=== PATIENT | male | born 1980 | race Caucasian/White ===

== ENCOUNTER 2019-04-02 10:22 | Outpatient (REF) | payer MEDICARE, MEDICAID, SELFPAY ==
[2019-04-02 13:18] LABS: HCT 47.6 % (40.0-50.0); HGB 16.1 g/dL (13.5-17.5); Mean Corp. HGB Concentration 33.8 g/dL (32.0-36.0); Mean Corpuscular Hemoglobin 30.9 pg (27.0-33.0); Mean Corpuscular Volume 91.4 fL (80-95); Mean Platelet Volume 11.2 fL (8.0-11.0); Platelet Count 223 x1000/uL (130-400); RBC 5.21 m/cumm (4.50-6.00); RBC Distribution Width 12.6 % (11.8-14.1); White Blood Cell Count 5.76 k/cumm (4.4-10.8)
[2019-04-02 13:35] LABS: Lithium < 0.20 mmol/L (0.60-1.20)
[2019-04-02 13:39] LABS: ALT 96 U/L (12-78); AST 34 U/L (15-37); Alkaline Phosphatase 89 U/L (46-116); BUN 11 mg/dL (7-18); Bilirubin, Total 0.7 mg/dL (0.2-1.0); CREATININE 0.78 mg/dL (0.70-1.30); Calcium 9.2 mg/dL (8.5-10.1); Chloride 103 mmol/L (98-107); Glucose 85 mg/dL (70-100); Potassium 4.3 mmol/L (3.5-5.1); Sodium 137 mmol/L (136-145); Total Protein 7.2 g/dL (6.4-8.2)
== END 2019-04-02 10:42 ==
LOC: NCHCN 10:22
PROVIDERS: PCP Family Medicine; Visit Provider Family Medicine
DX: R74.0 Nonspecific elevation of levels of transaminase and lactic acid dehydrogenase [LDH] (principal); Z51.81 Encounter for therapeutic drug level monitoring; Z79.899 Other long term (current) drug therapy
CPT/HCPCS: 80053; 85027; 80178

== ENCOUNTER 2020-04-06 19:51 | Outpatient (REF) | payer MEDICARE, MEDICAID, SELFPAY ==
[2020-04-06 18:53] LABS: HCT 46.2 % (40.0-50.0); HGB 15.8 g/dL (13.5-17.5); Mean Corp. HGB Concentration 34.2 g/dL (32.0-36.0); Mean Corpuscular Hemoglobin 31.1 pg (27.0-33.0); Mean Corpuscular Volume 90.9 fL (80-95); Mean Platelet Volume 11.7 fL (8.0-11.0); Platelet Count 237 x1000/uL (130-400); RBC 5.08 m/cumm (4.50-6.00); RBC Distribution Width 12.3 % (11.8-14.1); White Blood Cell Count 6.67 k/cumm (4.4-10.8)
[2020-04-06 19:05] LABS: ALT 75 U/L (16-63); AST 35 U/L (15-37); Albumin 4.1 g/dL (3.4-5.0); Alkaline Phosphatase 88 U/L (46-116); Anion Gap 8.1 mmol/L (3-11); BUN 13 mg/dL (7-18); Bilirubin, Total 0.5 mg/dL (0.2-1.0); CO2 26.9 mmol/L (21.0-32.0); CREATININE 0.93 mg/dL (0.70-1.30); Calcium 8.8 mg/dL (8.5-10.1); Chloride 102 mmol/L (98-107); Glucose 88 mg/dL (74-106); Potassium 4.1 mmol/L (3.5-5.1); Sodium 137 mmol/L (136-145); Total Protein 7.2 g/dL (6.4-8.2)
== END 2020-04-06 20:11 ==
LOC: NCHCN 19:51
PROVIDERS: PCP Family Medicine; Visit Provider Family Medicine
DX: K76.0 Fatty (change of) liver, not elsewhere classified (principal)
CPT/HCPCS: 80053; 85027

== ENCOUNTER 2021-04-16 19:32 | Outpatient (REF) | payer MEDICARE, MEDICAID, SELFPAY ==
[2021-04-16 19:57] LABS: HCT 49.6 % (40.0-50.0); HGB 16.6 g/dL (13.5-17.5); MCH 30.6 pg (27.0-33.0); MCHC 33.5 % (32.0-36.0); MCV 91.5 fL (80-95); MPV 11.5 fL (8.0-11.0); Platelet Count 214 10^3/uL (130-400); RBC 5.42 10^6/uL (4.36-5.78); RDW 11.7 % (11.8-14.1); RDW-SD 39.4 fL; WBC 6.55 10^3/uL (4.4-10.8)
[2021-04-16 20:27] LABS: Hemoglobin A1C 5.7 % (<5.7)
== END 2021-04-16 19:33 | disposition home or self-care (01) ==
LOC: NCHCN 19:32
PROVIDERS: PCP Family Medicine; Visit Provider Family Medicine
DX: R03.0 Elevated blood-pressure reading, without diagnosis of hypertension (principal); F20.0 Paranoid schizophrenia; K76.0 Fatty (change of) liver, not elsewhere classified; Z79.899 Other long term (current) drug therapy
CPT/HCPCS: 80053; 82306; 85027; 83036; 84443

== ENCOUNTER 2021-09-12 20:14 | Outpatient (REF) | payer MEDICARE, MEDICAID, SELFPAY ==
[2021-09-12 21:29] LABS: HCT 45.5 % (40.0-50.0); HGB 15.1 g/dL (13.5-17.5); MCH 30.7 pg (27.0-33.0); MCHC 33.2 % (32.0-36.0); MCV 92.5 fL (80-95); MPV 12.2 fL (8.0-11.0); Platelet Count 228 10^3/uL (130-400); RBC 4.92 10^6/uL (4.36-5.78); RDW 11.7 % (11.8-14.1); RDW-SD 40.2 fL
[2021-09-13 09:26] LABS: Albumin 3.9 g/dL (3.4-5.0); BUN 16 mg/dL (7-18); Bilirubin, Total 0.5 mg/dL (0.2-1.0); Glucose 115 mg/dL (74-106); Total Protein 6.9 g/dL (6.4-8.2)
[2021-09-13 09:27] LABS: ALT 89 U/L (16-63); AST 35 U/L (15-37); Alkaline Phosphatase 92 U/L (46-116); Anion Gap 12.4 mmol/L (3-11); CO2 24.6 mmol/L (21.0-32.0); Chloride 105 mmol/L (98-107); Potassium 4.2 mmol/L (3.5-5.1); Sodium 142 mmol/L (136-145); TSH (W/Ref FT4) 0.51 uIU/mL (0.36-3.74)
== END 2021-09-12 20:15 | disposition home or self-care (01) ==
LOC: NCHCN 20:14
PROVIDERS: PCP Family Medicine; Visit Provider Family Medicine
DX: I10 Essential (primary) hypertension (principal); K76.0 Fatty (change of) liver, not elsewhere classified
CPT/HCPCS: 80053; 85027; 84443

== ENCOUNTER 2023-02-11 14:11 | Outpatient (REF) | payer MEDICARE, MEDICAID, SELFPAY ==
[2023-02-11 15:30] LABS: HCT 48.8 % (40.0-50.0); HGB 16.2 g/dL (13.5-17.5); MCH 29.8 pg (27.0-33.0); MCHC 33.2 % (32.0-36.0); MCV 90 fL (80-95); MPV 9.7 fL (8.0-11.0); Platelet Count 262 10^3/uL (130-400); RBC 5.44 10^6/uL (4.36-5.78); RDW 12.4 % (11.8-14.1); RDW-SD 40.5 fL; WBC 7.68 10^3/uL (4.4-10.8)
[2023-02-11 17:10] LABS: ALT 77 U/L (16-63); AST 32 U/L (15-37); Alkaline Phosphatase 112 U/L (46-116); Anion Gap 9.4 mmol/L (3-11); BUN 15 mg/dL (7-18); Bilirubin, Total 0.5 mg/dL (0.2-1.0); CO2 27.6 mmol/L (21.0-32.0); CREATININE 0.8 mg/dL (0.70-1.30); Calcium 9.4 mg/dL (8.5-10.1); Chloride 103 mmol/L (98-107); Estimated GFR 114.02 (mL/min/1.73m2); Glucose 96 mg/dL (74-106); Sodium 140 mmol/L (136-145); Total Protein 7.5 g/dL (6.4-8.2)
[2023-02-11 17:19] LABS: NT-proBNP < 5 pg/mL (<300)
== END 2023-02-11 14:12 | disposition home or self-care (01) ==
LOC: NCHCN 14:11
PROVIDERS: PCP Family Medicine; Visit Provider Family Medicine
DX: R06.02 Shortness of breath (principal); K76.0 Fatty (change of) liver, not elsewhere classified; R60.0 Localized edema
CPT/HCPCS: 80053; 85027; 83880

== ENCOUNTER 2023-02-25 03:14 | Outpatient (CLI) | payer MEDICARE, MEDICAID, SELFPAY ==
[2023-02-25] MEDS: Albuterol HFA 18 GM 200 PUFF INH IH (11:24)
[2023-02-25] MEDS: Inhaler, Assist Device 1 EACH MC (11:25)
--- NOTE | 2023-02-25 13:28 | W.PFT ---
Date of service: 02/25/23 Time of Service: 10:06 Pulmonary Function Test Result Indications: Shortness of breath Interpretation Spirometry: There is no airflow limitation. There is no bronchodilator response. There may be flattening of the expiratory loop. Lung Volumes: Normal lung volumes. Diffusion Capacity: Increased diffusion. Airway Pressure: Normal airways resistance Impression Possible flattening of the expiratory loop on the flow volume curve. This may be consistent with a variable intrathoracic upper airway obstructive pattern, the differential for this can include airway trauma, airway infection, airway inflammation, mass, etc. Consider chest CT for further evaluation if clinically appropriate. Clinical Correlation therefore is recommended.
== END 2023-02-25 03:15 | disposition home or self-care (01) ==
LOC: RT 03:14
PROVIDERS: PCP Family Medicine; Visit Provider Family Medicine
DX: R06.02 Shortness of breath (principal); Z87.891 Personal history of nicotine dependence
CPT/HCPCS: 94060; 94726; 94729

== ENCOUNTER 2023-03-06 13:19 | Outpatient (REF) | payer MEDICARE, MEDICAID, SELFPAY ==
[2023-03-06 16:10] LABS: ALT 73 U/L (16-63); AST 31 U/L (15-37); Albumin 3.7 g/dL (3.4-5.0); Alkaline Phosphatase 103 U/L (46-116); Anion Gap 9.5 mmol/L (3-11); BUN 20 mg/dL (7-18); Bilirubin, Total 0.6 mg/dL (0.2-1.0); CO2 27.5 mmol/L (21.0-32.0); Calcium 9.1 mg/dL (8.5-10.1); Chloride 99 mmol/L (98-107); Estimated GFR 96.37 (mL/min/1.73m2); Glucose 101 mg/dL (74-106); Potassium 4.1 mmol/L (3.5-5.1); Sodium 136 mmol/L (136-145); Total Protein 7.2 g/dL (6.4-8.2)
== END 2023-03-06 13:20 | disposition home or self-care (01) ==
LOC: NCHCN 13:19
PROVIDERS: PCP Family Medicine; Visit Provider Family Medicine
DX: R06.02 Shortness of breath (principal); R60.0 Localized edema
CPT/HCPCS: 80053

== ENCOUNTER 2023-03-06 14:23 | Outpatient (CLI) | payer MEDICARE, MEDICAID, SELFPAY ==
--- NOTE | 2023-03-06 | DI.CT_ITS ---
Exam(s) CT CHEST W EXAM: CT CHEST W CLINICAL HISTORY: UPPER AIRWAY OBSTR,SOB, R06.02, J98.9 TECHNIQUE: Imaging Protocol: Axial computed tomography images with coronal and sagittal reformatted images were created and reviewed CONTRAST MATERIAL: Intravenous: Omnipaque 350Contrast volume:70 mL. COMPARISON: No exams were available for comparison FINDINGS: Tracheobronchial tree: Patent where visualized. Pulmonary parenchyma: No consolidation or dominant measurable mass. No architectural distortion. Ther e are few noncalcified pulmonary nodules present. The largest measures 3 mm in the left lower lobe. There are calcified pulmonary nodules present. Mediastinum and [place]: No dominant adenopathy or fluid collection. The esophagus is unremarkable. The re is a small hiatal hernia. Thyroid gland: Unremarkable. Pleura: No effusion or pneumothorax. Heart: The heart is not dilated. Coronary artery calcifications are present. No pericardial effusion . Aorta: Thoracic aorta non-dilated. Pulmonary arteries: The pulmonary arteries are not adequately opacified for evaluation of pulmonary e mboli. Upper abdomen: There is decreased attenuation of the liver consistent with fatty infiltration. Lymph nodes: Within normal limits. Bones: Within normal limits for the patient's age. Soft tissues: Bilateral gynecomastia. IMPRESSION: 1. No evidence of airway obstruction. 2. Several noncalcified pulmonary nodules. The largest measures 3 mm in the left lower lobe. For lo w risk patients, no routine follow-up is recommended. For high risk patients, (history of smoking or other risk factors), optional CT scan in 12 months may be obtained. 3. Fatty infiltration of the liver. RADIATION DOSE DELIVERED: 898.18mGy.cm Total DLP DATA REPOSITORY: All CT scans at this facility are submitted to the National Radiology Data Registry (NRDR) Dose Index Registry (DIR) with the [employer] (ACR). RADIATION OPTIMIZATION: All CT scans at this facility use at least one of these dose optimization te chniques: automated exposure control; mA and/or kV adjustment per patient size (includes targeted exa ms where dose is matched to clinical indication); or iterative reconstruction.
[2023-03-06] MEDS: Omnipaque 350 MG/ML 500 ML BTL-Imaging package IJ (14:25)
[2023-03-06] MEDS: Normal Saline - Diluent 50 ML VIAL IJ (14:25)
== END 2023-03-06 14:43 ==
LOC: DI 14:24
PROVIDERS: PCP Family Medicine; Visit Provider Family Medicine
DX: J98.8 Other specified respiratory disorders (principal); R06.02 Shortness of breath
CPT/HCPCS: 71260

== ENCOUNTER 2023-04-09 00:48 | Outpatient (CLI) | payer MEDICARE, MEDICAID, SELFPAY ==
--- NOTE | 2023-04-09 16:09 | DI.US_ITS ---
APPROVED REPORT EXAM: Comprehensive 2D, Doppler, and color-flow Echocardiogram Patient Location: Out-Patient Nursing Resident: Matilda Toney RDCS (AE) Indications: Increasing SOB, Untreated ALY, Pulmonary HTN Other Information Study Quality: Fair. Technically limited study due to body habitus. Conclusion Technically limited study Left ventricular wall thickness chamber size and systolic function appear within the range of normal. Ejection fraction is 55%. No segmental wall motion abnormalities are identified Right ventricle is not well visualized Both atria are normal in size Within the limits of the study there is no structural or hemodynamically significant valvular disease Right ventricular systolic pressure could not be estimated Wall motion Left Ventricle The left ventricle is normal size. The left ventricular systolic function is normal. The left ventric ular ejection fraction is within the normal range. There is normal left ventricular wall thickness. T here is normal LV segmental wall motion. There is no ventricular septal defect visualized. LVEF is 55 %. Right Ventricle Right ventricle is not well visualized. Right ventricular systolic function could not be assessed. Atria The left atrium size is normal. The right atrium size is normal. The interatrial septum is intact wit h no evidence for an atrial septal defect. Aortic Valve The aortic valve is normal in structure. Aortic valve is trileaflet. There is no aortic valvular sten osis. No aortic regurgitation is present. Mitral Valve The mitral valve is normal in structure. No evidence of mitral valve stenosis. Trace mitral regurgita tion. Tricuspid Valve The tricuspid valve is normal in structure. There is no tricuspid valve stenosis. Trace tricuspid reg urgitation. Unable to assess PA pressure. Pulmonic Valve The pulmonary valve is normal in structure. There is no pulmonic valvular stenosis. There is no pulmo kevin valvular regurgitation. Great Vessels The aortic root is normal in size. Ascending aorta is not well visualized. IVC is normal in size and collapses >50% with inspiration. Pericardium There is no pericardial effusion. 2D Dimensions IVSD d PLAX 0.89 cm M: 0.6-1.2 LV Vol A2C d MOD 103.7 mL LVPW d PLAX 0.89 cm M: 0.6 - 1.2 LV Vol A4C d MOD 141.7 mL LVID d PLAX 4.22 cm M: 4.2 - 5.8 LA vol/ BSA A4C s A-L 17.6 mL/m2 LVDs 3.15 cm M: 2.5 - 4.0 LA Area A4C s MOD 14.71 cm2 Ao Root d 2.67 cm M: 3.1 - 3.7 LV EF A4C MOD 50.3 % LV EF Teichholz 50.3 % LV EF A2C MOD 50.9 % LVEF (Childress's) 51.23 % M: 52 - 72 LV EF Biplane MOD 51.2 % LV Volume 89.32 mL M: 62 - 150 SV 63.39 mL LV Volume Index 39.52 mL/m2 M: 34 - 74 SV Index 28.12 mL/m2 LV Vol Biplane MOD 123.7 mL FS 25.25 % M-Mode TAPSE 2.14 cm (M/F) >1.7 LV Diastology MV E' medial 0.096 (>0.07 m/s) E/A Ratio 1.3 LV E/e MED 11.10 (<14) MV E Vmax 1.07 (0.4-1.3 m/s) MV E' lateral 0.146 (>0.1 m/s) MV A Vmax 0.80 (0.4-1.3 m/s) LV E/e LAT 7.30 (<14) MV E/A Ratio 1.31 MV E/E' medial 11.14 MV E/E' lateral 7.35 Aortic Valve LVOT Area 3.02 cm2 AoV Area Vmax 2.25 cm2 LVOT Vmax 1.47 m/s AoV Area/ BSA (Vmax) 1.00 cm2/m2 LVOT Mean Scott. 1.06 m/s VIDAL Mean Scott. 2.38 cm2 LVOT Peak Grad 8.7 mmHg VIDAL Mean Scott. Index 1.06 cm2/m2 LVOT Mean Grad 5.1 mmHg LVOT VTI 0.272 m LVOT Diam s 1.95 cm AoV Vmax 1.98 m/s Velocity Ratio 0.74 AoV Mean Scott. 1.34 m/s AoV Peak Grad 15.6 mmHg LVOT SV 82.13 mL AoV Mean Grad 8.3 mmHg AoV VTI 0.345 m AoV Area VTI 2.38 cm2 AoV Area/ BSA (VTI) 1.06 cm/m2 Mitral Valve MV DT 203 (160-240 msec) MV PHT 59 msec MV Area PHT 3.74 cm2 Pulmonary Valve PV Vmax 1.18 (0.5-1.5 m/s) RVOT Peak Gr. 4.20 mmHg PV Peak Grad 5.5 mmHg RVOT Mean Gr. 2.30 mmHg PV Mean Grad 3.0 mmHg RVOT VTI 0.193 m PV VTI 0.219 m RVOT Vmax 1.02 m/s
== END 2023-04-09 01:08 ==
LOC: DI 00:59
PROVIDERS: PCP Family Medicine; Visit Provider Family Medicine
DX: R06.02 Shortness of breath (principal)
CPT/HCPCS: 93306

== ENCOUNTER 2023-06-23 18:19 | Outpatient (REF) | payer MEDICARE, MEDICAID, SELFPAY ==
[2023-06-23 19:29] LABS: Hemoglobin A1C 5.9 % (<5.7)
[2023-06-23 19:32] LABS: Anion Gap 12.1 mmol/L (3-11); BUN 16 mg/dL (7-18); CO2 23.9 mmol/L (21.0-32.0); CREATININE 0.9 mg/dL (0.70-1.30); Calcium 9.2 mg/dL (8.5-10.1); Calculated LDL 84 mg/dL (<100); Chloride 101 mmol/L (98-107); Cholesterol 145 mg/dL (<200); Estimated GFR 109.36 (mL/min/1.73m2); Glucose 119 mg/dL (74-106); HDL Cholesterol 32 mg/dL (40-60); Potassium 4.2 mmol/L (3.5-5.1); Sodium 137 mmol/L (136-145); Triglyceride 147 mg/dL (<150)
== END 2023-06-23 18:20 | disposition home or self-care (01) ==
LOC: NCHCN 18:19
PROVIDERS: PCP Family Medicine; Visit Provider Family Medicine
DX: I10 Essential (primary) hypertension (principal); R73.03 Prediabetes; R79.89 Other specified abnormal findings of blood chemistry
CPT/HCPCS: 80048; 80061; 83036

== ENCOUNTER 2023-07-20 09:28 | Inpatient (IN) | payer MEDICARE, MEDICAID, SELFPAY ==
[2023-07-20] VITALS (67 sets, daily range): BP systolic 77–137; BP diastolic 32–92; PULSE 67–113; RESP 12–35; TEMP 36.8–38.3; O2SAT 93–98
--- NOTE | 2023-07-20 10:00 | DI.RAD_ITS ---
Exam(s) XR CHEST 2V PA LATERAL EXAM: XR CHEST 2V PA LATERAL CLINICAL HISTORY: fever TECHNIQUE: 2D digital imaging was performed. COMPARISON: No exams were available for comparison FINDINGS: HEART: Normal size. Aorta: Not dilated. PULMONARY VASCULATURE: Normal. LUNGS: Clear. PLEURAL SPACE: No pleural effusion or pneumothorax. BONE:Unremarkable for age. IMPRESSION: No acute abnormality. DATA REPOSITORY: RADIATION DOSE DELIVERED:
[2023-07-20] MEDS: Normal Saline 1,000 ML 1000 ML IV ×3 (10:40→13:40)
[2023-07-20] MEDS: Ketorolac 15 MG/ML VIAL IVP (10:40)
[2023-07-20 10:43] LABS: Abs Immature Grans 0.12 10^3/uL (0.0-0.06); Absolute Basophil Count 0.03 10^3/uL (0.0-0.2); Absolute Lymphocyte Count 0.43 10^3/uL (1.2-3.4); Absolute Monocyte Count 0.37 10^3/uL (0.1-0.8); Absolute Neutrophil Count 7.05 10^3/uL (1.2-6.7); Basophils % 0.4; Eosinophils % 2.4; HCT 39.4 % (40.0-50.0); HGB 13.4 g/dL (13.5-17.5); Immature Grans % 1.5; Lymphocytes % 5.2; MCH 30.6 pg (27.0-33.0); MCV 90 fL (80-95); MPV 8.8 fL (8.0-11.0); Monocytes % 4.5; Platelet Count 177 10^3/uL (130-400); RBC 4.38 10^6/uL (4.36-5.78); RDW 12.8 % (11.8-14.1); RDW-SD 42.6 fL
[2023-07-20 11:01] LABS: Bilirubin Negative (Negative); Blood Negative (Negative); Clarity Clear (Clear); Glucose Negative (Negative); Ketones Negative (Negative); Leukocyte Esterase Negative (Negative); Nitrite Negative (Negative); Specific Gravity 1.025 (1.005-1.025); pH 5.5 (5-8)
[2023-07-20 11:02] LABS: ALT 90 U/L (16-63); AST 82 U/L (15-37); Albumin 3.2 g/dL (3.4-5.0); Alkaline Phosphatase 92 U/L (46-116); Anion Gap 10.5 mmol/L (3-11); BUN 53 mg/dL (7-18); Bilirubin, Total 0.6 mg/dL (0.2-1.0); CO2 23.5 mmol/L (21.0-32.0); Calcium 8.9 mg/dL (8.5-10.1); Chloride 98 mmol/L (98-107); Estimated GFR 41.95 (mL/min/1.73m2); Glucose 120 mg/dL (74-106); Lipase 76 U/L (16-77); Magnesium 1.6 mg/dL (1.8-2.4); Potassium 3.9 mmol/L (3.5-5.1); Sodium 132 mmol/L (136-145); Total Protein 6.9 g/dL (6.4-8.2)
[2023-07-20 11:14] LABS: Bacteria Negative HPF (Negative); C & S Indicated? No; Casts 10-20 Hyaline LPF (Negative); Crystals Moderate Amorphous HPF (Negative); Epithelial Cells Moderate HPF (Negative); Mucus Negative (Negative); RBC 0-2 HPF (0-2); WBC 0-2 HPF (0-5)
[2023-07-20 11:23] LABS: COVID-19 PCR Negative (Negative); Influenza A PCR Negative (Negative); Influenza B PCR Negative (Negative); RSV PCR Negative (Negative)
[2023-07-20 11:25] LABS: Source Nasopharynx
--- NOTE | 2023-07-20 11:49 | DI.VRAD_ITS ---
PROCEDURE INFORMATION: Exam: XR Chest Exam date and time: 07/20/2023 11:33 AM Age: 43 years old Clinical indication: Fever and other: Fever TECHNIQUE: Imaging protocol: Radiologic exam of the chest. Views: 2 views. COMPARISON: CT CHEST W 03/06/2023 2:22 PM FINDINGS: Lungs: Unremarkable. No consolidation. Pleural spaces: Unremarkable. No pleural effusion. No pneumothorax. Heart/Mediastinum: Unremarkable. No cardiomegaly. Bones/joints: Unremarkable. IMPRESSION: No acute findings. Dictated and Authenticated by: Dorina Soto MD. Ordering:EDWARDO Escobar MD
[2023-07-20] MEDS: ACETAMINOPHEN 1,000 MG/100 ML BTL 400 MG IVPB (12:18)
--- NOTE | 2023-07-20 12:36 | ED.GENADUL_ITS ---
Discharge Plan Disposition Patient Disposition: Admit to [facility] Discharge Details Clinical Impression: Fever of unknown origin, Acute hypotension, MARILU (acute kidney injury), Elevated procalcitonin, Transaminitis Admit Date/Time: 07/20/23 15:08 Admit Provider: Tucker Hilton Attending Provider: Tucker Hilton Primary Care Provider: Marin Nix ED Provider: Shawn Iraheta Discharge Data Discharge Date/Time-TO BE ENTERED AT DEPARTURE: 07/20/23 16:53 Medical Decision Making Patient presenting to the emergency department for chief complaint of body shaking. Patient reports this started 2 days ago which resolved on its own but then came back today little more severe. Patient states some generalized malaise but denies all other symptoms. Does state that he recently started Ozempic and initially had some intermittent GI upset and diarrhea but has not had any for about 1 week. Physical exam is unremarkable with normal HEENT cardiac respiratory and GI exam no obvious rash noted no focal findings. Review of vital signs does show patient is tachycardic and febrile which I suspect is what patient was sensing with the chills. We will plan on giving IV fluids IV ketorolac and checking labs along with chest x-ray. Reviewed patient's labs and CBC shows slight anemia with hemoglobin of 13.4 otherwise nondiagnostic CBC. CMP shows slightly low sodium at 132, significant elevation of BUN at 53 and creatinine of 2.0 which is not at patient's baseline. Glucose was 120 magnesium slightly low at 1.6 with elevated AST of 82 and ALT of 90 lipase is within normal range albumin slightly low other LFTs within normal range. Urinalysis shows trace protein and urobilinogen otherwise no obvious signs of infection noted. Patient was negative for COVID flu and RSV. Tickborne panel was sent out along with blood cultures. Patient did become slightly hypotensive with blood pressure noted of 85/49 second liter of fluids was given otherwise no obvious source for fever noted. Due to this we will perform CT imaging of abdomen given some elevation of LFTs but patient has no abdominal pain or GI symptoms at this time. Patient still slightly febrile with temp of 99.3 which we will give IV acetaminophen pending results Reviewed CT imaging and radiologist interpretation that shows a distended urinary bladder with thickened irregular wall with consistency of cystitis. Given negative urinalysis I still not convinced that this is patient's source of infection. Reviewed additional labs which lactate is within normal range but procalcitonin is 9.2 which I do feel is concerning given the setting of fever and hypotension. We will plan on admitting patient given continued hypotension but MAP above 76 not requiring pressors at this time. Called and spoke with hospitalist who agreed to admit patient. Due to potential consideration of tickborne illness doxycycline was added and MRSA swab also ordered. Patient was in agreement with this plan of care. Imaging Data Radiologic Study: Imaging: CT Scan Radiologist's impression: Exam(s) PROCEDURE INFORMATION: Exam: CT Abdomen And Pelvis With Contrast Exam date and time: 07/20/2023 1:26 PM Age: 43 years old Clinical indication: Other: Fever TECHNIQUE: Imaging protocol: Computed tomography of the abdomen and pelvis with contrast. Radiation optimization: All CT scans at this facility use at least one of these dose optimization techniques: automated exposure control; mA and/or kV adjustment per patient size (includes targeted exams where dose is matched to clinical indication); or iterative reconstruction. Contrast material: OMNIPAQUE 350; Contrast volume: 100 ml; Contrast route: INTRAVENOUS (IV); COMPARISON: CT CHEST W 02/05/2023 14:22 FINDINGS: Lungs: Multiple subcentimeter nodules at the lung bases stable compared with prior study. Dependent atelectasis. Heart: Prominent cardiac silhouette. Coronary arteries: Calcified coronary arteries. Diaphragm: Hiatal hernia. Liver: Hepatic steatosis. Hepatomegaly. Gallbladder and bile ducts: Normal. No calcified stones. No ductal dilation. Pancreas: Normal. No ductal dilation. Spleen: Normal. No splenomegaly. Adrenal glands: Normal. No mass. Kidneys and ureters: Simple right renal cysts. No hydronephrosis or hydroureter. Stomach and bowel: Unremarkable. No obstruction. No mucosal thickening. Appendix: No evidence of appendicitis. Intraperitoneal space: Unremarkable. No free air. No significant fluid collection. Vasculature: Unremarkable. No abdominal aortic aneurysm. Lymph nodes: Unremarkable. No enlarged lymph nodes. Urinary bladder: Distended urinary bladder with thickened irregular wall of concern for cystitis. Mild stranding of the fat around the bladder wall. Reproductive: Unremarkable as visualized. Bones/joints: Multilevel degenerative changes of the spine. Soft tissues: Umbilical hernia. Fat distension of the inguinal canals. Dependent edema in the soft tissues of the back. IMPRESSION: 1. Distended urinary bladder with thickened irregular wall consistent with cystitis. 2. Stable tiny lung nodules compared with prior chest CT. As per Fleischner Society guidelines for follow-up and management of pulmonary nodules: For patients at low risk (minimal or absent history of smoking and of other known risk factors), no follow-up needed. For patient at high risk (history of smoking or of other known risk factors), recommend follow-up chest CT at 12 months; if unchanged, no further follow-up needed. Dictated and Authenticated by: Leann Mattson MD. Lab Data Lab results reviewed: Yes I reviewed the patient's lab results. HPI General Mode of arrival: EMS . Date/Time Provider Initiated Documentation: 07/20/23 09:56 . Limitations to Documentation: no limitations . Information obtained by: patient and RN notes reviewed . History of Present Illness 43 year old M presents to the emergency department with the chief complaint of Fever, shaking, Patient started experiencing this day(s) (2) and it has been intermittent. No relieving factors improve symptom(s), No exacerbating factors reported . Patient notes no other symptoms.. Patient did receive the following treatments prior to arrival, none Related Data Home Medications Medication Instructions Recorded Confirmed buspirone 15 mg tablet See Rx Instructions .Route .COMPLEX 06/15/13 07/20/23 cholecalciferol (vitamin D3) 50 2,000 unit PO DAILY 06/15/13 07/20/23 mcg (2,000 unit) capsule (Vitamin D3) fish oil-fat acid [id number] 2,400 mg PO DAILY 06/15/13 07/20/23 [id number] 1,200 mg (400 [id number]) cap ([place] 3-6-9 Triple [place]) multivitamin (Multi-Day tablet) 1 tab PO DAILY 06/15/13 07/20/23 omeprazole 20 mg capsule,delayed 10 mg PO DAILY 06/15/13 07/20/23 release ropinirole 1 mg tablet (Requip) 1 mg PO DAILY 06/15/13 07/20/23 sertraline 100 mg tablet (Zoloft) 50 mg PO HS 06/15/13 07/20/23 simvastatin 40 mg tablet 40 mg PO DAILY 12/06/15 07/20/23 aripiprazole 15 mg tablet (Abilify) 30 mg PO DAILY 08/08/16 07/20/23 amiloride 5 mg tablet 2.5 mg PO DAILY 07/20/23 07/20/23 magnesium gluconate 27 mg 500 mg PO BID 07/20/23 07/20/23 magnesium (500 mg) tablet melatonin 3 mg tablet 3 mg PO HS 07/20/23 07/20/23 olmesartan 40 1 tab PO DAILY 07/20/23 07/20/23 mg-hydrochlorothiazide 25 mg tablet prazosin 2 mg capsule 2 mg PO HS 07/20/23 07/20/23 semaglutide 0.25 mg or 0.5 mg (2 See Rx Instructions .Route .COMPLEX 07/20/23 07/20/23 mg/3 mL) subcutaneous pen injector (Ozempic) Allergies Allergy/AdvReac Type Severity Reaction Status Date / Time No Known Allergies Allergy Unverified 07/20/23 09:51 General Stated Complaint: GenMedical JAMAL: 3 Review of Systems Constitutional Constitutional: Reports chills, Reports malaise and Reports weakness ENT Ears, Nose, Mouth, and Throat: Denies vertigo, Denies dizziness, Denies nasal congestion, Denies sinus pain and Denies sore throat Cardiovascular Cardiovascular: Denies chest pain, Denies syncope and Denies dyspnea Respiratory Respiratory: Denies cough and Denies dyspnea Gastrointestinal Gastrointestinal: Denies abdominal pain, Reports diarrhea, Denies nausea and Reports vomiting Musculoskeletal Musculoskeletal: Denies arthralgias and Denies joint swelling Integumentary/Breasts Skin/Breast: Denies rash Neurologic Neurologic: Denies confusion, Denies vertigo, Denies dizziness, Denies syncope and Reports weakness Psychiatric Psychiatric: Denies confusion PFSH All Active Problems (Updated 07/21/23 @ 16:11 by Shawn Iraheta NP) Elevated procalcitonin (Acute) Obstructive sleep apnea (Chronic) Transaminitis (Acute) Rectal bleeding (Acute) Sepsis (Acute) Fever of unknown origin (Acute) Acute hypotension (Acute) MARILU (acute kidney injury) (Acute) Medical History Dyslipidemia GERD (gastroesophageal reflux disease) Morbid obesity Restless leg syndrome Schizoaffective disorder Vitamin D deficiency Social History Smoking/Tobacco Use Status: Former Tobacco Use Smoking risk assessment performed?: Yes Alcohol Intake: never Drug use: Never Substance use type: does not use Housing: house Do you feel safe at home: Yes Do you feel safe in your relationship?: Yes Exam Const General: cooperative Orientation: alert, awake and oriented x3 HENMT Head: normal to inspection, normocephalic and atraumatic Ears: hearing grossly normal bilaterally and TM's normal bilaterally General nose exam: external nose normal Face and sinus: no erythema Mouth: oral mucosae normal, no drooling, no muffled voice and no trismus Throat: posterior oropharynx normal Neck Neck: normal visual inspection, full ROM, no lymphadenopathy, no meningeal signs, trachea midline and supple Resp Effort & Inspection: normal respiratory effort and able to speak in complete sentences Auscultation: clear to auscultation bilaterally Cardio Rate: regular rate Rhythm: regular rhythm Heart Sounds: S1 normal and S2 normal GI Inspection: obesity Palpation: soft, not firm, no guarding, no masses, no pulsatile masses, not rigid and nontender Auscultation: normal bowel sounds Skin General skin exam: no rashes or lesions noted and dry skin (warm) Neuro General: patient alert, patient awake, patient oriented x3, gait normal and moves all extremities Cognition: normal cognition Speech: speech normal Course Vital Signs Vital signs: Vital Signs Temperature 38.3 C H 07/20/23 09:41 Pulse 107 H 07/20/23 09:41 Respiratory Rate 20 07/20/23 09:41 Blood Pressure 137/92 H 07/20/23 09:41 Pulse Oximetry 95 07/20/23 09:41 Temperature 38.3 C H 07/20/23 09:41 Temperature Source Oral 07/20/23 09:41 Pulse 107 H 07/20/23 09:41 Respiratory Rate 20 07/20/23 09:48 Respiratory Effort Normal 07/20/23 09:48 Respiratory Depth Normal 07/20/23 09:48 Respiratory Pattern Normal 07/20/23 09:48 Blood Pressure 137/92 H 07/20/23 09:41 Blood Pressure Position Sitting 07/20/23 09:41 Pulse Oximetry 95 07/20/23 09:41 Oxygen Delivery Method Room Air 07/20/23 09:41 Oxygen Flow Rate 0 07/20/23 09:41 Pain Level 0 07/20/23 09:41 Lab/Test Results Lab/Test Results: 07/20/23 12:25 Blood Blood Culture - Pending 07/20/23 10:30 Blood Blood Culture - Pending Laboratory Tests Range/Units 07/20/23 07/20/23 07/20/23 10:30 10:30 10:34 WBC (4.4-10.8) 10^3/uL 8.20 RBC (4.36-5.78) 10^6/uL 4.38 Hgb (13.5-17.5) g/dL 13.4 L Hct (40.0-50.0) % 39.4 L MCV (80-95) fL 90 MCH (27.0-33.0) pg 30.6 MCHC (32.0-36.0) % 34.0 RDW (11.8-14.1) % 12.8 Plt Count (130-400) 10^3/uL 177 MPV (8.0-11.0) fL 8.8 Immature Gran % 1.5 Neutrophils % 86.0 Lymphocytes % 5.2 Monocytes % 4.5 Eosinophils % 2.4 Basophils % 0.4 Nucleated RBC % (0.0-0.3) % 0.0 Absolute Neutrophils (1.2-6.7) 10^3/uL 7.05 H Absolute Lymphocytes (1.2-3.4) 10^3/uL 0.43 L Absolute Monocytes (0.1-0.8) 10^3/uL 0.37 Absolute Eosinophils (0.0-0.7) 10^3/uL 0.20 Absolute Basophils (0.0-0.2) 10^3/uL 0.03 VBG Lactate (0.6-1.4) mmol/L Sodium (136-145) mmol/L 132 L Potassium (3.5-5.1) mmol/L 3.9 Chloride (98-107) mmol/L 98 Carbon Dioxide (21.0-32.0) mmol/L 23.5 Anion Gap (3-11) mmol/L 10.5 BUN (7-18) mg/dL 53 H Creatinine (0.70-1.30) mg/dL 2.0 H Est GFR (CKD-EPI 2020) (mL/min/1.73m2) 41.95 Glucose (74-106) mg/dL 120 H Calcium (8.5-10.1) mg/dL 8.9 Magnesium (1.8-2.4) mg/dL 1.6 L Total Bilirubin (0.2-1.0) mg/dL 0.6 AST (15-37) U/L 82 H ALT (16-63) U/L 90 H Alkaline Phosphatase (46-116) U/L 92 Total Protein (6.4-8.2) g/dL 6.9 Albumin (3.4-5.0) g/dL 3.2 L Lipase (16-77) U/L 76 Urine Color (Yellow) Urine Clarity (Clear) Urine pH (5-8) Ur Specific [place] (1.005-1.025) Urine Protein (Negative) mg/dL Urine Ketones (Negative) mg/dL Urine Blood (Negative) Urine Nitrite (Negative) Urine Bilirubin (Negative) Urine Urobilinogen (Up to 0.2) mg/dL Ur Leukocyte Esterase (Negative) Urine RBC (0-2) HPF Urine WBC (0-5) HPF Ur Epithelial Cells (Negative) HPF Urine Crystals (Negative) HPF Urine Bacteria (Negative) HPF Urine Casts (Negative) LPF Urine Mucus (Negative) Ur Culture Indicated? Urine Glucose (Negative) mg/dL COVID-19 Source Nasopharynx SARS-CoV-2 (PCR) (Negative) Negative Influenza Type A (PCR) (Negative) Negative Influenza Type B (PCR) (Negative) Negative RSV (PCR) (Negative) Negative Range/Units 07/20/23 07/20/23 10:48 12:25 WBC (4.4-10.8) 10^3/uL RBC (4.36-5.78) 10^6/uL Hgb (13.5-17.5) g/dL Hct (40.0-50.0) % MCV (80-95) fL MCH (27.0-33.0) pg MCHC (32.0-36.0) % RDW (11.8-14.1) % Plt Count (130-400) 10^3/uL MPV (8.0-11.0) fL Immature Gran % Neutrophils % Lymphocytes % Monocytes % Eosinophils % Basophils % Nucleated RBC % (0.0-0.3) % Absolute Neutrophils (1.2-6.7) 10^3/uL Absolute Lymphocytes (1.2-3.4) 10^3/uL Absolute Monocytes (0.1-0.8) 10^3/uL Absolute Eosinophils (0.0-0.7) 10^3/uL Absolute Basophils (0.0-0.2) 10^3/uL VBG Lactate (0.6-1.4) mmol/L 1.0 Sodium (136-145) mmol/L Potassium (3.5-5.1) mmol/L Chloride (98-107) mmol/L Carbon Dioxide (21.0-32.0) mmol/L Anion Gap (3-11) mmol/L BUN (7-18) mg/dL Creatinine (0.70-1.30) mg/dL Est GFR (CKD-EPI 2020) (mL/min/1.73m2) Glucose (74-106) mg/dL Calcium (8.5-10.1) mg/dL Magnesium (1.8-2.4) mg/dL Total Bilirubin (0.2-1.0) mg/dL AST (15-37) U/L ALT (16-63) U/L Alkaline Phosphatase (46-116) U/L Total Protein (6.4-8.2) g/dL Albumin (3.4-5.0) g/dL Lipase (16-77) U/L Urine Color (Yellow) Yellow Urine Clarity (Clear) Clear Urine pH (5-8) 5.5 Ur Specific [place] (1.005-1.025) 1.025 Urine Protein (Negative) mg/dL Trace H Urine Ketones (Negative) mg/dL Negative Urine Blood (Negative) Negative Urine Nitrite (Negative) Negative Urine Bilirubin (Negative) Negative Urine Urobilinogen (Up to 0.2) mg/dL 1.0 H Ur Leukocyte Esterase (Negative) Negative Urine RBC (0-2) HPF 0-2 Urine WBC (0-5) HPF 0-2 Ur Epithelial Cells (Negative) HPF Moderate Urine Crystals (Negative) HPF Moderate Amorphous Urine Bacteria (Negative) HPF Negative Urine Casts (Negative) LPF 10-20 Hyaline Urine Mucus (Negative) Negative Ur Culture Indicated? No Urine Glucose (Negative) mg/dL Negative COVID-19 Source SARS-CoV-2 (PCR) (Negative) Influenza Type A (PCR) (Negative) Influenza Type B (PCR) (Negative) RSV (PCR) (Negative)
--- NOTE | 2023-07-20 12:39 | DI.CT_ITS ---
Exam(s) CT ABDOMEN PELVIS W EXAM: CT ABDOMEN PELVIS W CLINICAL HISTORY: fever. TECHNIQUE: Imaging Protocol: Axial computed tomography images with coronal and sagittal reformatted images were created and reviewed CONTRAST MATERIAL: Intravenous: Omnipaque 350 Contrast volume:100 ml Oral: no COMPARISON: No exams were available for comparison FINDINGS: ABDOMEN: Lung Bases: Tiny nodules at the lung bases, stable. No follow-up recommended. Tiny hiatal hernia. Liver: Enlarged. Hepatic steatosis. No measurable mass. Gallbladder and biliary tract: No radiodense calculus or dilation. Pancreas: Normal density, no abnormal calcifications or inflammatory process. Spleen: Normal. Kidneys: Normal size, contour and axis. No radiodense stones or obstructive uropathy. No suspicious m asses seen. Adrenal glands: No masses seen. Vasculature: Abdominal aorta non-dilated. Soft tissues: Unremarkable. PELVIS: Bladder: Mild wall thickening. No calculi.No focal mass. Bowel: No obstruction. No bowel wall thickening. Appendix normal. Peritoneal cavity: No ascites, collection or mesenteric inflammatory response. Bones: Bilateral L5 spondylolysis with minimal spondylolisthesis. Reproductive organs: Within normal limits. Lymph nodes: Unremarkable. IMPRESSION:: Mild bladder wall thickening could indicate cystitis. Clinical correlation recommended . RADIATION DOSE DELIVERED: 1,671.15mGy.cm Total DLP DATA REPOSITORY: All CT scans at this facility are submitted to the National Radiology Data Registry (NRDR) Dose Index Registry (DIR) with the [employer] (ACR). RADIATION OPTIMIZATION: All CT scans at this facility use at least one of these dose optimization te chniques: automated exposure control; mA and/or kV adjustment per patient size (includes targeted exa ms where dose is matched to clinical indication); or iterative reconstruction.
[2023-07-20 13:02] LABS: Procalcitonin 9.2 ng/mL
[2023-07-20] MEDS: Omnipaque 350 MG/ML 100 ML BTL IJ (13:30)
[2023-07-20] MEDS: Normal Saline - Diluent 50 ML VIAL IJ (13:31)
[2023-07-20] MEDS: Normal Saline Flush 10 ML SYR IVP ×2 (13:31→20:30)
[2023-07-20] MEDS: PIPERACILLIN/TAZO 4.5 GM in Normal Saline 100 ML IVPB (13:45)
--- NOTE | 2023-07-20 14:21 | DI.VRAD_ITS ---
PROCEDURE INFORMATION: Exam: CT Abdomen And Pelvis With Contrast Exam date and time: 07/20/2023 1:26 PM Age: 43 years old Clinical indication: Other: Fever TECHNIQUE: Imaging protocol: Computed tomography of the abdomen and pelvis with contrast. Radiation optimization: All CT scans at this facility use at least one of these dose optimization techniques: automated exposure control; mA and/or kV adjustment per patient size (includes targeted exams where dose is matched to clinical indication); or iterative reconstruction. Contrast material: OMNIPAQUE 350; Contrast volume: 100 ml; Contrast route: INTRAVENOUS (IV); COMPARISON: CT CHEST W 02/05/2023 14:22 FINDINGS: Lungs: Multiple subcentimeter nodules at the lung bases stable compared with prior study. Dependent atelectasis. Heart: Prominent cardiac silhouette. Coronary arteries: Calcified coronary arteries. Diaphragm: Hiatal hernia. Liver: Hepatic steatosis. Hepatomegaly. Gallbladder and bile ducts: Normal. No calcified stones. No ductal dilation. Pancreas: Normal. No ductal dilation. Spleen: Normal. No splenomegaly. Adrenal glands: Normal. No mass. Kidneys and ureters: Simple right renal cysts. No hydronephrosis or hydroureter. Stomach and bowel: Unremarkable. No obstruction. No mucosal thickening. Appendix: No evidence of appendicitis. Intraperitoneal space: Unremarkable. No free air. No significant fluid collection. Vasculature: Unremarkable. No abdominal aortic aneurysm. Lymph nodes: Unremarkable. No enlarged lymph nodes. Urinary bladder: Distended urinary bladder with thickened irregular wall of concern for cystitis. Mild stranding of the fat around the bladder wall. Reproductive: Unremarkable as visualized. Bones/joints: Multilevel degenerative changes of the spine. Soft tissues: Umbilical hernia. Fat distension of the inguinal canals. Dependent edema in the soft tissues of the back. IMPRESSION: 1. Distended urinary bladder with thickened irregular wall consistent with cystitis. 2. Stable tiny lung nodules compared with prior chest CT. As per Fleischner Society guidelines for follow-up and management of pulmonary nodules: For patients at low risk (minimal or absent history of smoking and of other known risk factors), no follow-up needed. For patient at high risk (history of smoking or of other known risk factors), recommend follow-up chest CT at 12 months; if unchanged, no further follow-up needed. Dictated and Authenticated by: Leann Mattson MD. Ordering:EDWARDO Escobar MD
[2023-07-20] MEDS: VANCOMYCIN/WATER (PEG) 1 GM/200 ML BAG IVPB (14:24)
[2023-07-20] MEDS: DOXYCYCLINE 100 MG in Normal Saline 100 ML IVPB (15:10)
[2023-07-20] MEDS: Enoxaparin 40 MG/0.4 ML SYR SC (17:32)
--- NOTE | 2023-07-20 18:30 | W.PM.HP.N ---
Date of service: 07/20/23 Time of Service: 18:30 Assessment and Plan Assessment and plan (1) Sepsis: Status: Acute Assessment and plan: presentation is suggestive of sepsis, i.e. fever, elevated procalcitionin, MARILU, symptoms of rigors, however source of infection is not clear at this point. CT abdomen and pelvis suggests that he has had chronic UTI, i.e. bladder wall thickening and irregularities, however he denies symptoms of dysuria, hematuria or urinary frequency or urgency. UA is not consistent w/ UTI. CXR does not show any infiltrates. He does complain of rectal pain and has had rectal bleeding ever since he began Ozempic about one week ago to treat his obesity. CT abdomen also did not show signs of rectal abscess or diverticulitis nor acute cholecystisis or obstructive uropathy nor biliary pathology. Await blood and urine cultures, treat empirically w/ cefepime. He did get one time dose of Zosyn and Vancomycin which I informed the ED provider was not the best choice in setting of MARILU. I will hold on further Vancomycin as he has had no hx of Staphy infections but will get MRSA screening. I will ask surgery to evaluate his rectal bleeding which I confirmed on rectal exam. He was tender on rectal exam so this may be a prostatitis and a quinolone would be treatment of choice but cefepime will more than adequately cover this. BP is improved from when the ED called me and I initially ordered norepinephrine but now his MAP is improved and over 70 mm, therefore we can hold on vasopressors. Critical care time spent interviewing and examining the patient, reviewing studies, discussing case with patient's nurse and consulting physicians was 70 minutes Outside of time spent performing POCUS exam (2) Fever of unknown origin: Status: Acute Assessment and plan: as above (3) MARILU (acute kidney injury): Status: Acute Assessment and plan: likely combination of dehydration and sepsis; patient has had 3 liters of iv fluids. Unfortunately I could not get good visualization of his IVC and unable to get good subxiphoid views. Overall his LV and RV fxn look normal on PLAX and PSAX and he does not appear to be in RV overload, therefore I will continue iv fluids overnight x 1 liter as he shows no signs of volume overload either on exam nor on POCUS (4) Rectal bleeding: Status: Acute Assessment and plan: I did not see any external hemorrhoid and could not feel any thrombosed hemorrhoids but he was tender on digital rectal exam w/ enlarged and tender prostate, and palpable internal hemorrhoid. I have messaged Dr. Finney to see him in the a.m. I do not believe his rectal bleeding is the cause for his hypotension. I will give him Proctofoam HC empirically (5) Transaminitis: Status: Acute Assessment and plan: may be 2nd to sepsis but also could be from Ozempic or from fatty liver changes. Tick panel was sent off by ED provider and I will empirically cover w/ doxycycline until this returns. I did not see any rashes consistent w/ tick bite and he denies any rash or bites. (6) GERD (gastroesophageal reflux disease): Assessment and plan: continue PPI (7) Schizoaffective disorder: Assessment and plan: continue home meds, check lithium level (8) Dyslipidemia: Assessment and plan: hold simvastatin for now in setting of slightly elevated transaminases (9) Morbid obesity: (10) Obstructive sleep apnea: Status: Chronic Assessment and plan: patient brought in his CPAP PFSH All Active Problems (Updated 07/20/23 @ 19:33 by Tucker Hilton MD) Obstructive sleep apnea (Chronic) Transaminitis (Acute) Rectal bleeding (Acute) Sepsis (Acute) Fever of unknown origin (Acute) Acute hypotension (Acute) MARILU (acute kidney injury) (Acute) Medical History Dyslipidemia GERD (gastroesophageal reflux disease) Morbid obesity Restless leg syndrome Schizoaffective disorder Vitamin D deficiency Social History Smoking/Tobacco Use Status: Former Tobacco Use Smoking risk assessment performed?: Yes Alcohol Intake: never Drug use: Never Substance use type: does not use Housing: house Do you feel safe at home: Yes Do you feel safe in your relationship?: Yes Meds Allergies and Home Medications Allergies Allergy/AdvReac Type Severity Reaction Status Date / Time No Known Allergies Allergy Unverified 07/20/23 09:51 Home Medications Medication Instructions Recorded Confirmed Type buspirone 15 mg tablet See Rx Instructions .Route .COMPLEX 06/15/13 07/20/23 History cholecalciferol (vitamin D3) 50 2,000 unit PO DAILY 06/15/13 07/20/23 History mcg (2,000 unit) capsule (Vitamin D3) dextroamphetamine sulfate 10 mg 10 mg PO BID 06/15/13 08/08/16 History capsule,extended release (Dexedrine Spansule) docusate sodium 100 mg capsule 100 mg PO DAILY 06/15/13 08/08/16 History (Colace) fish oil-fat acid comb8-herb 2,400 mg PO DAILY 06/15/13 07/20/23 History [id number] 1,200 mg (400 th-959gs-532ad) cap (Fouke 3-6-9 Triple Fouke) lithium carbonate 300 mg capsule 300 mg PO DAILY 06/15/13 08/08/16 History multivitamin (Multi-Day tablet) 1 tab PO DAILY 06/15/13 07/20/23 History omeprazole 20 mg capsule,delayed 10 mg PO DAILY 06/15/13 07/20/23 History release risperidone 3 mg disintegrating 3 mg PO TID 06/15/13 07/05/16 History tablet (Risperdal M-TAB) ropinirole 1 mg tablet (Requip) 1 mg PO DAILY 06/15/13 07/20/23 History sertraline 100 mg tablet (Zoloft) 50 mg PO HS 06/15/13 07/20/23 History simvastatin 40 mg tablet 40 mg PO DAILY 12/06/15 07/20/23 History asenapine maleate 5 mg sublingual 5 mg sublingual BID 08/03/16 08/03/16 History tablet (Saphris (black wallace)) aripiprazole 15 mg tablet (Abilify) 30 mg PO DAILY 08/08/16 07/20/23 History amiloride 5 mg tablet 2.5 mg PO DAILY 07/20/23 07/20/23 History magnesium gluconate 27 mg 500 mg PO BID 07/20/23 07/20/23 History magnesium (500 mg) tablet melatonin 3 mg tablet 3 mg PO HS 07/20/23 07/20/23 History olmesartan 40 1 tab PO DAILY 07/20/23 07/20/23 History mg-hydrochlorothiazide 25 mg tablet prazosin 2 mg capsule 2 mg PO HS 07/20/23 07/20/23 History semaglutide 0.25 mg or 0.5 mg (2 See Rx Instructions .Route .COMPLEX 07/20/23 07/20/23 History mg/3 mL) subcutaneous pen injector (Ozempic) Results Labs 07/20/23 10:30 07/20/23 10:30 Labs: Laboratory Results - last 24 hr 07/20/23 07/20/23 07/20/23 10:30 10:30 10:34 WBC 8.20 RBC 4.38 Hgb 13.4 L Hct 39.4 L MCV 90 MCH 30.6 MCHC 34.0 RDW 12.8 Plt Count 177 MPV 8.8 Immature Gran % 1.5 Neutrophils % 86.0 Lymphocytes % 5.2 Monocytes % 4.5 Eosinophils % 2.4 Basophils % 0.4 Nucleated RBC % 0.0 Absolute Neutrophils 7.05 H Absolute Lymphocytes 0.43 L Absolute Monocytes 0.37 Absolute Eosinophils 0.20 Absolute Basophils 0.03 VBG Lactate Sodium 132 L Potassium 3.9 Chloride 98 Carbon Dioxide 23.5 Anion Gap 10.5 BUN 53 H Creatinine 2.0 H Est GFR (CKD-EPI 2020) 41.95 Glucose 120 H Calcium 8.9 Magnesium 1.6 L Total Bilirubin 0.6 AST 82 H ALT 90 H Alkaline Phosphatase 92 Total Protein 6.9 Albumin 3.2 L Lipase 76 Procalcitonin Urine Color Urine Clarity Urine pH Ur Specific [place] Urine Protein Urine Ketones Urine Blood Urine Nitrite Urine Bilirubin Urine Urobilinogen Ur Leukocyte Esterase Urine RBC Urine WBC Ur Epithelial Cells Urine Crystals Urine Bacteria Urine Casts Urine Mucus Ur Culture Indicated? Urine Glucose COVID-19 Source Nasopharynx SARS-CoV-2 (PCR) Negative Influenza Type A (PCR) Negative Influenza Type B (PCR) Negative RSV (PCR) Negative 07/20/23 07/20/23 10:48 12:25 WBC RBC Hgb Hct MCV MCH MCHC RDW Plt Count MPV Immature Gran % Neutrophils % Lymphocytes % Monocytes % Eosinophils % Basophils % Nucleated RBC % Absolute Neutrophils Absolute Lymphocytes Absolute Monocytes Absolute Eosinophils Absolute Basophils VBG Lactate 1.0 Sodium Potassium Chloride Carbon Dioxide Anion Gap BUN Creatinine Est GFR (CKD-EPI 2020) Glucose Calcium Magnesium Total Bilirubin AST ALT Alkaline Phosphatase Total Protein Albumin Lipase Procalcitonin 9.2 Urine Color Yellow Urine Clarity Clear Urine pH 5.5 Ur Specific [place] 1.025 Urine Protein Trace H Urine Ketones Negative Urine Blood Negative Urine Nitrite Negative Urine Bilirubin Negative Urine Urobilinogen 1.0 H Ur Leukocyte Esterase Negative Urine RBC 0-2 Urine WBC 0-2 Ur Epithelial Cells Moderate Urine Crystals Moderate Amorphous Urine Bacteria Negative Urine Casts 10-20 Hyaline Urine Mucus Negative Ur Culture Indicated? No Urine Glucose Negative COVID-19 Source SARS-CoV-2 (PCR) Influenza Type A (PCR) Influenza Type B (PCR) RSV (PCR) Last Vital Signs Temp 36.8 C 07/20/23 17:12 Pulse 73 07/20/23 18:02 Resp 30 H 07/20/23 18:02 BP 90/37 L 07/20/23 18:02 Pulse Ox 98 07/20/23 18:02 Time Spent Time spent with Patient: 55-74 minutes Time was spent: preparing to see the patient(eg.review tests), obtaining and/or reviewing separately otained hiistory, ordering medications,tests, procedures, referring, communicating with other health director of patient care (Discussion with KAITLYN Arevalo as well as communicating with Dr. Juan Carlos Finney), indepentently interpreting results, counseling the patient and care coordination
--- NOTE | 2023-07-20 19:54 | W.POCUS ---
Pocus Exam Limited Cardiac Exam DATE OF EXAM: 07/20/23 TIME OF EXAM: 18:55 PROVIDER THAT PERFORMED THE STUDY: Tucker Hilton IS THIS A REPEAT EXAM DURING THIS ENCOUNTER: no REASON FOR EXAM: Hypotension and Septic Shock VISUALIZED STRUCTURES: left atrium, left ventricle, LVOT, right ventricle, aortic valve, mitral valve and Interventricular septum VIEW OBTAINED: Parasternal long-axis and Parasternal short-axis PERTINENT FINDINGS/IMPRESSION: No LV dysfunction, No pericardial effusion, No RV dilation and No RV dysfunction INCIDENTAL FINDINGS: Echo limited by body habitus, unable to obtain adequate 4 chamber subcostal views and unable to obtain acceptable 4 chamber apical view. Grossly normal LV and RV function based on PLAX and PSAX views, no MR or AI or seen. No sign of RV overload based on above views. Exam complete
[2023-07-20 20:19] LABS: Lactate 0.5 mmol/L (0.6-1.4)
[2023-07-20 20:23] LABS: HGB 12.5 g/dL (13.5-17.5)
[2023-07-20] MEDS: Pantoprazole 40 MG VIAL IVP (20:29)
[2023-07-20] MEDS: CEFEPIME 2 GM in Normal Saline 100 ML IVPB (21:07)
[2023-07-20] MEDS: Melatonin 3 MG TAB PO (21:09)
[2023-07-20] MEDS: Sertraline 100 MG TAB 50 MG PO (21:09)
[2023-07-21] VITALS (21 sets, daily range): BP systolic 88–111; BP diastolic 55–74; PULSE 63–79; RESP 16–27; TEMP 37–37.5; O2SAT 94–98
[2023-07-21] MEDS: DOXYCYCLINE 100 MG in Normal Saline 100 ML IVPB ×2 (01:56→15:09)
--- NOTE | 2023-07-21 06:46 | PUCC_ITS ---
General Date of Service Date of service: 07/21/23 Time of Service: 06:46 Reason for Admission to ICU: Sepsis Assessment and Plan Assessment and plan (1) Obstructive sleep apnea: Status: Chronic (2) Rectal bleeding: Status: Acute (3) MARILU (acute kidney injury): Status: Resolved (4) Fever of unknown origin: Status: Acute (5) Acute hypotension: Status: Acute (6) Hyponatremia: Status: Acute Assessment and plan: This is a 43 yo admitted to the ICU for hypotension and fever or unclear origin. He has no clear infectious signs or prodrome. His procalcitonin was also very elevated, which I would recommend repeating. Procalcitonins can be falsely elevated in vasculitis conditions and since he does not have a clear source of infection, I will test for this. He is on broad spectrum coverage, which is appropriate until the cause of this is sorted out. I do not think we requires the ICU any longer. Recommendations Pulmonary: ALY - continue CPAP Cardiac: Acute hypotension - resolved - never needed vasopressors Renal: MARILU - resolved I&O: Intake & Output 07/18/23 07/19/23 07/20/23 07/21/23 23:59 23:59 23:59 23:59 Intake Total 3620 / 3720 200 / 200 Output Total 800 / 800 1200 / 1200 Balance 2820 / 2920 -1000 / -1000 Weight 128.14 kg Daily Fluid Goal:: even GI Nutrition: Rectal bleed - not acutely worrisome - surgery has seen patient Date of Last Bowel Movement: 07/20/23 Infectious Disease: Fever with elevated procalcitonin - ferritin normal - recommend repeat procalcitonin - ANCA and COMPA recommended - continue cefepime and doxycycline Hematologic: No acute concerns Neurologic: No acute concerns Endocrine: No acute concerns Lines: PIV Prophylaxis: on Protonix Recommend chemical DVT ppx Code Status: Resuscitation Status Full Code Subjective Critical and life-threatening events over the past 24 hours: This is a 43 yo admitted to the ICU for sepsis of unclear origin. He was hypotensive but responded to IVF's. He has not required vasopressors. His lactate is normal, he has a very elevated procalcitonin and an MARILU. He states he presented to the hospital for 'shakes/tremors. He denies any respiratory symptoms, abdominal pain, diarrhea, vomiting, new rashes. His blood pressure has stabilized and he never needed vasopressor support. His urine output has been stable. Today he states that he is feeling much better and is asking if he is able to go home. Exam Narrative Exam Narrative: Gen: NAD, normal respiratory effort, obese HENT: PERRL, nasal turbinates normal without erythema or inflammation, moist oral mucosa, Mallampati 2, No LAD or JVD Chest: No respiratory distress, normal appearance of chest, clear to auscultation bilaterally, no crackles or wheezes, normal inspiratory effort Heart: regular rate and rhythym, no murmurs, rubs or gallops Abdomen: Non-distended, soft, non tender Extremities: No clubbing, edema, cyanosis, rashes Neuro: AAOx3 , non focal Psych: cooperative, appropriate mental affect Most Recent VS/Results Last Vital Signs Temp 37.2 C 07/21/23 04:00 Pulse 66 07/21/23 05:01 Resp 21 07/21/23 05:01 BP 91/63 L 07/21/23 05:01 Pulse Ox 94 07/21/23 05:01 Laboratory Results - last 24 hr 07/20/23 07/20/23 07/20/23 10:30 10:30 10:34 WBC 8.20 RBC 4.38 Hgb 13.4 L Hct 39.4 L MCV 90 MCH 30.6 MCHC 34.0 RDW 12.8 Plt Count 177 MPV 8.8 Immature Gran % 1.5 Neutrophils % 86.0 Lymphocytes % 5.2 Monocytes % 4.5 Eosinophils % 2.4 Basophils % 0.4 Nucleated RBC % 0.0 Absolute Neutrophils 7.05 H Absolute Lymphocytes 0.43 L Absolute Monocytes 0.37 Absolute Eosinophils 0.20 Absolute Basophils 0.03 VBG Lactate Sodium 132 L Potassium 3.9 Chloride 98 Carbon Dioxide 23.5 Anion Gap 10.5 BUN 53 H Creatinine 2.0 H Est GFR (CKD-EPI 2020) 41.95 Glucose 120 H Calcium 8.9 Magnesium 1.6 L Total Bilirubin 0.6 AST 82 H ALT 90 H Alkaline Phosphatase 92 Total Protein 6.9 Albumin 3.2 L Lipase 76 Procalcitonin Urine Color Urine Clarity Urine pH Ur Specific [place] Urine Protein Urine Ketones Urine Blood Urine Nitrite Urine Bilirubin Urine Urobilinogen Ur Leukocyte Esterase Urine RBC Urine WBC Ur Epithelial Cells Urine Crystals Urine Bacteria Urine Casts Urine Mucus Ur Culture Indicated? Urine Glucose COVID-19 Source Nasopharynx SARS-CoV-2 (PCR) Negative Influenza Type A (PCR) Negative Influenza Type B (PCR) Negative RSV (PCR) Negative Patient ABO/Rh Antibody Screen 07/20/23 07/20/23 07/20/23 10:48 12:25 20:10 WBC RBC Hgb Hct MCV MCH MCHC RDW Plt Count MPV Immature Gran % Neutrophils % Lymphocytes % Monocytes % Eosinophils % Basophils % Nucleated RBC % Absolute Neutrophils Absolute Lymphocytes Absolute Monocytes Absolute Eosinophils Absolute Basophils VBG Lactate 1.0 Sodium Potassium Chloride Carbon Dioxide Anion Gap BUN Creatinine Est GFR (CKD-EPI 2020) Glucose Calcium Magnesium Total Bilirubin AST ALT Alkaline Phosphatase Total Protein Albumin Lipase Procalcitonin 9.2 Urine Color Yellow Urine Clarity Clear Urine pH 5.5 Ur Specific [place] 1.025 Urine Protein Trace H Urine Ketones Negative Urine Blood Negative Urine Nitrite Negative Urine Bilirubin Negative Urine Urobilinogen 1.0 H Ur Leukocyte Esterase Negative Urine RBC 0-2 Urine WBC 0-2 Ur Epithelial Cells Moderate Urine Crystals Moderate Amorphous Urine Bacteria Negative Urine Casts 10-20 Hyaline Urine Mucus Negative Ur Culture Indicated? No Urine Glucose Negative COVID-19 Source SARS-CoV-2 (PCR) Influenza Type A (PCR) Influenza Type B (PCR) RSV (PCR) Patient ABO/Rh O Positive Antibody Screen NEGATIVE 07/20/23 07/20/23 20:10 20:10 WBC RBC Hgb 12.5 L Hct 37.0 L MCV MCH MCHC RDW Plt Count MPV Immature Gran % Neutrophils % Lymphocytes % Monocytes % Eosinophils % Basophils % Nucleated RBC % Absolute Neutrophils Absolute Lymphocytes Absolute Monocytes Absolute Eosinophils Absolute Basophils VBG Lactate 0.5 L Sodium Potassium Chloride Carbon Dioxide Anion Gap BUN Creatinine Est GFR (CKD-EPI 2020) Glucose Calcium Magnesium Total Bilirubin AST ALT Alkaline Phosphatase Total Protein Albumin Lipase Procalcitonin Urine Color Urine Clarity Urine pH Ur Specific [place] Urine Protein Urine Ketones Urine Blood Urine Nitrite Urine Bilirubin Urine Urobilinogen Ur Leukocyte Esterase Urine RBC Urine WBC Ur Epithelial Cells Urine Crystals Urine Bacteria Urine Casts Urine Mucus Ur Culture Indicated? Urine Glucose COVID-19 Source SARS-CoV-2 (PCR) Influenza Type A (PCR) Influenza Type B (PCR) RSV (PCR) Patient ABO/Rh Antibody Screen Review of Systems All systems reviewed & are unremarkable except as noted in HPI and below Time spent with patient Time spent in Critical Care: 45 Time spent in Critical care included: Chart review, Time at immediate bedside and Discussing critically ill care with other medical staff Multi-Disciplinary Checklist Lines/Tubes CENTRAL LINE: no ARTERIAL LINE: no HUDDLESTON: no ENDOTRACHEAL TUBE: no ICU Maintenance GLUCOSE 140-180mg/dL: yes NUTRITION AT GOAL: yes PRESSURE ULCER: no RESTRAINTS: no ANTIBIOTICS(if yes, consider Stewardship): Yes Social Issues FAMILY UPDATED: no, Reason/Intervention: patient able to do this PT/OT: no, Reason/Intervention: not needed at this time GOALS/DISPOSITION/TRANSMISSION SYSTEMS OPERATOR: yes CODE STATUS: Full Prophylaxis DVT PROPHYLAXIS: no Reason/Intervention: recommend this be started GI PROPHYLAXIS: yes, Indication: rectal bleeding
--- NOTE | 2023-07-21 06:47 | W.SURGCON ---
Date of service: 07/21/23 Time of Service: 06:47 Assessment and Plan Assessment and plan (1) Rectal bleeding: Status: Acute Assessment and plan: The history and exam seem most consistent with internal hemorrhoids. I will add some bowel regimen to help promote soft bulky stools. Can also add some Preparation H for discomfort. We talked about the other possibilities, which would include things like inflammatory bowel disease, or anal fissure. We will start with a basic interventions, and if he makes no improvement in the next couple weeks, then I would recommend a full exam under anesthesia, and possibly diagnostic colonoscopy. History of Present Illness History of Present Illness Chief Complaint: Hematochezia Narrative: Zhen is 43 years old. He comes to the emergency department yesterday, saying that he was shaking all over, and not feeling himself. Labs demonstrated a slight normocytic anemia, as well as elevated BUN and creatinine. On further questioning, he said he has had some diarrhea, with several episodes of blood in the toilet bowl, usually associated with his stools, and blood on the toilet paper as well. He underwent a CAT scan of the abdomen and pelvis that suggested the possibility of cystitis. He had some hypotension in the emergency department, he was admitted for fluid resuscitation and ongoing work-up. I was asked to see him for his hematochezia. During my questioning, he tells me that he started to develop some loose stools approximately 2 weeks ago, and this may be was temporally associated with the initiation of Ozempic for weight loss. He tells me his had some cramping abdominal discomfort associated with the loose bowel movements. After that, he started to develop some blood in the toilet bowl. He tells me it occurs after every bowel movement. Aside from the loose stools associated with the Ozempic, his bowel habits have otherwise been consistent and normal for him. He tells me this never happened before, however, there is a previous ER encounter in 2015 that describes a very similar history. It does not look like there was any other work-up after that. Review of Systems Constitutional Constitutional: Reports chills, Denies difficulty sleeping, Reports fatigue, Denies fever(s), Reports weakness and Denies weight loss Eyes Eyes: Reports system reviewed and no additional complaints, except as documented ENT Ears, Nose, Mouth, and Throat: Reports system reviewed and no additional complaints, except as documented Cardiovascular Cardiovascular: Denies chest pain and Denies dyspnea Respiratory Respiratory: Denies chest congestion, Denies cough and Denies dyspnea Gastrointestinal Gastrointestinal: Denies abdominal pain, Denies belching, Reports bloating, Reports change in stool character, Reports cramping, Denies nausea and Denies vomiting Comments: Maroon-colored hematochezia Genitourinary Genitourinary: Denies difficulty urinating and Denies dysuria Neurologic Neurologic: Reports weakness Endocrine Endocrine: Reports fatigue PFSH All Active Problems Obstructive sleep apnea (Chronic) Transaminitis (Acute) Rectal bleeding (Acute) Sepsis (Acute) Fever of unknown origin (Acute) Acute hypotension (Acute) MARILU (acute kidney injury) (Acute) Medical History Dyslipidemia GERD (gastroesophageal reflux disease) Morbid obesity Restless leg syndrome Schizoaffective disorder Vitamin D deficiency Social History Smoking/Tobacco Use Status: Former Tobacco Use Smoking risk assessment performed?: Yes Alcohol Intake: never Drug use: Never Substance use type: does not use Housing: house Do you feel safe at home: Yes Do you feel safe in your relationship?: Yes Exam Const General: cooperative and comfortable Orientation: alert, awake and oriented x3 HENMT Head: normal to inspection Eyes General: appearance normal, both eyes and all related structures GI Inspection: normal to inspection and obesity Palpation: soft, no guarding and nontender Percussion: normal to percussion Auscultation: normal bowel sounds Rectal Exam: visual inspection normal, normal sphincter tone, hemorrhoids, No mass and tenderness Other: I do not see any external evidence of fissures. There is minimal external hemorrhoid disease. There is grade 2 internal hemorrhoids. I do not appreciate any masses. Skin General skin exam: no rashes or lesions noted Results Last Vital Signs Temp 99.0 F 07/21/23 04:00 Pulse 66 07/21/23 05:01 Resp 21 07/21/23 05:01 BP 91/63 L 07/21/23 05:01 Pulse Ox 94 07/21/23 05:01 Labs 07/20/23 20:10 07/20/23 10:30 Labs: Laboratory Results - last 24 hr 07/20/23 07/20/23 07/20/23 10:30 10:30 10:34 WBC 8.20 RBC 4.38 Hgb 13.4 L Hct 39.4 L MCV 90 MCH 30.6 MCHC 34.0 RDW 12.8 Plt Count 177 MPV 8.8 Immature Gran % 1.5 Neutrophils % 86.0 Lymphocytes % 5.2 Monocytes % 4.5 Eosinophils % 2.4 Basophils % 0.4 Nucleated RBC % 0.0 Absolute Neutrophils 7.05 H Absolute Lymphocytes 0.43 L Absolute Monocytes 0.37 Absolute Eosinophils 0.20 Absolute Basophils 0.03 VBG Lactate Sodium 132 L Potassium 3.9 Chloride 98 Carbon Dioxide 23.5 Anion Gap 10.5 BUN 53 H Creatinine 2.0 H Est GFR (CKD-EPI 2020) 41.95 Glucose 120 H Calcium 8.9 Magnesium 1.6 L Total Bilirubin 0.6 AST 82 H ALT 90 H Alkaline Phosphatase 92 Total Protein 6.9 Albumin 3.2 L Lipase 76 Procalcitonin Urine Color Urine Clarity Urine pH Ur Specific [place] Urine Protein Urine Ketones Urine Blood Urine Nitrite Urine Bilirubin Urine Urobilinogen Ur Leukocyte Esterase Urine RBC Urine WBC Ur Epithelial Cells Urine Crystals Urine Bacteria Urine Casts Urine Mucus Ur Culture Indicated? Urine Glucose COVID-19 Source Nasopharynx SARS-CoV-2 (PCR) Negative Influenza Type A (PCR) Negative Influenza Type B (PCR) Negative RSV (PCR) Negative Patient ABO/Rh Antibody Screen 07/20/23 07/20/23 07/20/23 10:48 12:25 20:10 WBC RBC Hgb Hct MCV MCH MCHC RDW Plt Count MPV Immature Gran % Neutrophils % Lymphocytes % Monocytes % Eosinophils % Basophils % Nucleated RBC % Absolute Neutrophils Absolute Lymphocytes Absolute Monocytes Absolute Eosinophils Absolute Basophils VBG Lactate 1.0 Sodium Potassium Chloride Carbon Dioxide Anion Gap BUN Creatinine Est GFR (CKD-EPI 2020) Glucose Calcium Magnesium Total Bilirubin AST ALT Alkaline Phosphatase Total Protein Albumin Lipase Procalcitonin 9.2 Urine Color Yellow Urine Clarity Clear Urine pH 5.5 Ur Specific [place] 1.025 Urine Protein Trace H Urine Ketones Negative Urine Blood Negative Urine Nitrite Negative Urine Bilirubin Negative Urine Urobilinogen 1.0 H Ur Leukocyte Esterase Negative Urine RBC 0-2 Urine WBC 0-2 Ur Epithelial Cells Moderate Urine Crystals Moderate Amorphous Urine Bacteria Negative Urine Casts 10-20 Hyaline Urine Mucus Negative Ur Culture Indicated? No Urine Glucose Negative COVID-19 Source SARS-CoV-2 (PCR) Influenza Type A (PCR) Influenza Type B (PCR) RSV (PCR) Patient ABO/Rh O Positive Antibody Screen NEGATIVE 07/20/23 07/20/23 20:10 20:10 WBC RBC Hgb 12.5 L Hct 37.0 L MCV MCH MCHC RDW Plt Count MPV Immature Gran % Neutrophils % Lymphocytes % Monocytes % Eosinophils % Basophils % Nucleated RBC % Absolute Neutrophils Absolute Lymphocytes Absolute Monocytes Absolute Eosinophils Absolute Basophils VBG Lactate 0.5 L Sodium Potassium Chloride Carbon Dioxide Anion Gap BUN Creatinine Est GFR (CKD-EPI 2020) Glucose Calcium Magnesium Total Bilirubin AST ALT Alkaline Phosphatase Total Protein Albumin Lipase Procalcitonin Urine Color Urine Clarity Urine pH Ur Specific [place] Urine Protein Urine Ketones Urine Blood Urine Nitrite Urine Bilirubin Urine Urobilinogen Ur Leukocyte Esterase Urine RBC Urine WBC Ur Epithelial Cells Urine Crystals Urine Bacteria Urine Casts Urine Mucus Ur Culture Indicated? Urine Glucose COVID-19 Source SARS-CoV-2 (PCR) Influenza Type A (PCR) Influenza Type B (PCR) RSV (PCR) Patient ABO/Rh Antibody Screen
[2023-07-21 07:43] LABS: Abs Immature Grans 0.04 10^3/uL (0.0-0.06); Absolute Basophil Count 0.02 10^3/uL (0.0-0.2); Absolute Eosinophil Count 0.26 10^3/uL (0.0-0.7); Absolute Lymphocyte Count 1.03 10^3/uL (1.2-3.4); Absolute Monocyte Count 0.77 10^3/uL (0.1-0.8); Basophils % 0.4; Eosinophils % 4.8; HCT 36.8 % (40.0-50.0); HGB 12.2 g/dL (13.5-17.5); Immature Grans % 0.7; MCH 30.1 pg (27.0-33.0); MCHC 33.2 % (32.0-36.0); MCV 91 fL (80-95); MPV 10.5 fL (8.0-11.0); Monocytes % 14.2; Neutrophils % 60.9; Platelet Count 167 10^3/uL (130-400); RBC 4.05 10^6/uL (4.36-5.78); RDW 13.3 % (11.8-14.1); RDW-SD 45.3 fL; WBC 5.42 10^3/uL (4.4-10.8)
[2023-07-21 08:14] LABS: ALT 77 U/L (16-63); AST 48 U/L (15-37); Albumin 2.5 g/dL (3.4-5.0); Alkaline Phosphatase 79 U/L (46-116); Anion Gap 9.3 mmol/L (3-11); BUN 32 mg/dL (7-18); Bilirubin, Total 0.3 mg/dL (0.2-1.0); CO2 20.7 mmol/L (21.0-32.0); CREATININE 1.2 mg/dL (0.70-1.30); Calcium 8.6 mg/dL (8.5-10.1); Chloride 105 mmol/L (98-107); Estimated GFR 77.43 (mL/min/1.73m2); Glucose 107 mg/dL (74-106); Potassium 3.8 mmol/L (3.5-5.1); Sodium 135 mmol/L (136-145)
--- NOTE | 2023-07-21 08:27 | INITIAL_ITS ---
Date of service: 07/21/23 Time of Service: 08:28 Care Management Initial Assmt Initial Assessment REASON FOR HOSPITALIZATION:: sepsis PREVIOUS FUNCTIONAL STATUS/SOCIAL/FAMILY SUPPORTS:: Zhen lives in a fci in [place], [place] which has 24/7 caregivers. There are 4 people living in the home. Zhen was working at the [employer] but was laid off during Covid. He stated that he has applied to work at [employer] in [place] and that the fci staff will provide transportation. Zhen is independent with ADLs and self care, He has 2 sisters and a brother but only has a relationship with his brother Juan Carlos. He is adopted and he remains close to his adoptive parents who live in [place]. CURRENT FUNCTIONAL STATUS:: Zhen was sitting up in q chair when CM met with him. He was pleasant and cooperative and engaged well with CM. Zhen talked about his family and stated that his parents live in [place]. One of his siblings (a sister Jacinda) is his biological sister, the others 2 are step siblings. He also spoke about the fci where he has lived for the past 11 years. He indicated that he likes it there a lot and is close to the staff. He has his own room, with his own stuff which he is very happy about. ADVANCE DIRECTIVES:: none on file Has patient been provided with info about the portal/API?: Yes Did the patient sign up for the portal?: No CODE STATUS:: Full Code INSURANCE COVERAGE / FINANCIAL ISSUES:: Medicare medicaid CURRENT HOME/COMMUNITY SERVICES/EQUIPMENT:: lives in a fci PRIMARY CARE PHYSICIAN:: Marin Nix POTENTIAL DISCHARGE NEEDS:: follow up with PCP and plan of care PATIENT/FAMILY EDUCATION NEEDS:: review of discharge instructions, limitations, activity, follow up plan, discuss [employer] TRANSPORTATION:: via private vehicle PLAN:: Anticipate Zhen will be discharged back to his fci when medically cleared. He will follow up with his community providers and plan of c are and transport with caregivers. CM will follow and continue to assess for discharge needs. PFSH All Active Problems (Updated 07/21/23 @ 16:11 by Shawn Iraheta NP) Elevated procalcitonin (Acute) Obstructive sleep apnea (Chronic) Transaminitis (Acute) Rectal bleeding (Acute) Sepsis (Acute) Fever of unknown origin (Acute) Acute hypotension (Acute) MARILU (acute kidney injury) (Acute) Medical History Dyslipidemia GERD (gastroesophageal reflux disease) Morbid obesity Restless leg syndrome Schizoaffective disorder Vitamin D deficiency Social History Smoking/Tobacco Use Status: Former Tobacco Use Smoking risk assessment performed?: Yes Alcohol Intake: never Drug use: Never Substance use type: does not use Housing: house Do you feel safe at home: Yes Do you feel safe in your relationship?: Yes
--- NOTE | 2023-07-21 09:00 | W.PM.PROGNOT ---
Date of Service Date of service: 07/21/23 Time of Service: 09:00 Assessment and Plan Assessment and plan (1) Sepsis: Status: Acute Assessment and plan: Unclear source but I suspect acute prostatitis. However unusual movements urinalysis was unremarkable. I will consult with Dr. Sweeney to evaluate. Blood cultures are pending at this time. Urine culture was never sent. We will continue the cefepime for now until his blood cultures come back no growth at which point we will switch him over to oral quinolone. He remains hemodynamically stable. His acute kidney injury has resolved and his transaminases elevation is improving. Patient can be transferred to medical/surgical floor with no further telemetry monitoring. Once his blood cultures come back no growth he can be switched antibiotics and discharged home. Professional time spent interviewing and examining patient, discussion of goals of care with hospital team (care management, nursing and consulting professionals) was 35 minutes. (2) Fever of unknown origin: Status: Acute Assessment and plan: as above (3) MARILU (acute kidney injury): Status: Resolved Assessment and plan: . Sepsis and dehydration resolved after IV hydration biotics. Continue to monitor (4) Rectal bleeding: Status: Acute Assessment and plan: Most likely secondary to hemorrhoidal bleeding. Rectal fissure remains a possibility not seeing any anus. Dr. Juan Carlos Finney surgical consultation appreciated. Patient will be on a good bowel regimen constipation along with Proctofoam HC. H&H stable overnight. The patient follow-up Juan Carlos Finney as outpatient in 2 to 4 weeks. (5) Transaminitis: Status: Acute Assessment and plan: Improving. Likely etiology is underlying fatty liver with superimposed sepsis. (6) GERD (gastroesophageal reflux disease): Assessment and plan: continue PPI (7) Schizoaffective disorder: Assessment and plan: continue home meds, check lithium level (8) Dyslipidemia: Assessment and plan: hold simvastatin for now in setting of slightly elevated transaminases (9) Morbid obesity: (10) Obstructive sleep apnea: Status: Chronic Assessment and plan: patient brought in his CPAP Subjective Subjective Interval history since last seen: Patient states he is feeling better. He denies any nausea vomiting abdominal pain. No dysuria. Exam Narrative Exam Narrative: [place] sitting up in his chair eating breakfast. He is alert and oriented times place time circumstance. Lungs are clear to auscultation Respiratory rate and rhythm Abdomen obese soft nontender no guarding or rebound tenderness Objective Last Vital Signs Temp 37.2 C 07/21/23 04:00 Pulse 64 07/21/23 07:01 Resp 25 H 07/21/23 07:01 BP 96/68 L 07/21/23 07:01 Pulse Ox 95 07/21/23 07:01 Laboratory Results - last 24 hr 07/20/23 07/20/23 07/20/23 10:30 10:30 10:34 WBC 8.20 RBC 4.38 Hgb 13.4 L Hct 39.4 L MCV 90 MCH 30.6 MCHC 34.0 RDW 12.8 Plt Count 177 MPV 8.8 Immature Gran % 1.5 Neutrophils % 86.0 Lymphocytes % 5.2 Monocytes % 4.5 Eosinophils % 2.4 Basophils % 0.4 Nucleated RBC % 0.0 Absolute Neutrophils 7.05 H Absolute Lymphocytes 0.43 L Absolute Monocytes 0.37 Absolute Eosinophils 0.20 Absolute Basophils 0.03 VBG Lactate Sodium 132 L Potassium 3.9 Chloride 98 Carbon Dioxide 23.5 Anion Gap 10.5 BUN 53 H Creatinine 2.0 H Est GFR (CKD-EPI 2020) 41.95 Glucose 120 H Calcium 8.9 Magnesium 1.6 L Total Bilirubin 0.6 AST 82 H ALT 90 H Alkaline Phosphatase 92 Total Protein 6.9 Albumin 3.2 L Lipase 76 Procalcitonin Urine Color Urine Clarity Urine pH Ur Specific [place] Urine Protein Urine Ketones Urine Blood Urine Nitrite Urine Bilirubin Urine Urobilinogen Ur Leukocyte Esterase Urine RBC Urine WBC Ur Epithelial Cells Urine Crystals Urine Bacteria Urine Casts Urine Mucus Ur Culture Indicated? Urine Glucose COVID-19 Source Nasopharynx SARS-CoV-2 (PCR) Negative Influenza Type A (PCR) Negative Influenza Type B (PCR) Negative RSV (PCR) Negative Patient ABO/Rh Antibody Screen 07/20/23 07/20/23 07/20/23 10:48 12:25 20:10 WBC RBC Hgb Hct MCV MCH MCHC RDW Plt Count MPV Immature Gran % Neutrophils % Lymphocytes % Monocytes % Eosinophils % Basophils % Nucleated RBC % Absolute Neutrophils Absolute Lymphocytes Absolute Monocytes Absolute Eosinophils Absolute Basophils VBG Lactate 1.0 Sodium Potassium Chloride Carbon Dioxide Anion Gap BUN Creatinine Est GFR (CKD-EPI 2020) Glucose Calcium Magnesium Total Bilirubin AST ALT Alkaline Phosphatase Total Protein Albumin Lipase Procalcitonin 9.2 Urine Color Yellow Urine Clarity Clear Urine pH 5.5 Ur Specific [place] 1.025 Urine Protein Trace H Urine Ketones Negative Urine Blood Negative Urine Nitrite Negative Urine Bilirubin Negative Urine Urobilinogen 1.0 H Ur Leukocyte Esterase Negative Urine RBC 0-2 Urine WBC 0-2 Ur Epithelial Cells Moderate Urine Crystals Moderate Amorphous Urine Bacteria Negative Urine Casts 10-20 Hyaline Urine Mucus Negative Ur Culture Indicated? No Urine Glucose Negative COVID-19 Source SARS-CoV-2 (PCR) Influenza Type A (PCR) Influenza Type B (PCR) RSV (PCR) Patient ABO/Rh O Positive Antibody Screen NEGATIVE 07/20/23 07/20/23 07/21/23 20:10 20:10 06:05 WBC RBC Hgb 12.5 L Hct 37.0 L MCV MCH MCHC RDW Plt Count MPV Immature Gran % Neutrophils % Lymphocytes % Monocytes % Eosinophils % Basophils % Nucleated RBC % Absolute Neutrophils Absolute Lymphocytes Absolute Monocytes Absolute Eosinophils Absolute Basophils VBG Lactate 0.5 L Sodium 135 L Potassium 3.8 Chloride 105 Carbon Dioxide 20.7 L Anion Gap 9.3 BUN 32 H Creatinine 1.2 Est GFR (CKD-EPI 2020) 77.43 Glucose 107 H Calcium 8.6 Magnesium Total Bilirubin 0.3 AST 48 H ALT 77 H Alkaline Phosphatase 79 Total Protein 6.0 L Albumin 2.5 L Lipase Procalcitonin Urine Color Urine Clarity Urine pH Ur Specific [place] Urine Protein Urine Ketones Urine Blood Urine Nitrite Urine Bilirubin Urine Urobilinogen Ur Leukocyte Esterase Urine RBC Urine WBC Ur Epithelial Cells Urine Crystals Urine Bacteria Urine Casts Urine Mucus Ur Culture Indicated? Urine Glucose COVID-19 Source SARS-CoV-2 (PCR) Influenza Type A (PCR) Influenza Type B (PCR) RSV (PCR) Patient ABO/Rh Antibody Screen 07/21/23 06:05 WBC 5.42 RBC 4.05 L Hgb 12.2 L Hct 36.8 L MCV 91 MCH 30.1 MCHC 33.2 RDW 13.3 Plt Count 167 MPV 10.5 Immature Gran % 0.7 Neutrophils % 60.9 Lymphocytes % 19.0 Monocytes % 14.2 Eosinophils % 4.8 Basophils % 0.4 Nucleated RBC % 0.0 Absolute Neutrophils 3.30 Absolute Lymphocytes 1.03 L Absolute Monocytes 0.77 Absolute Eosinophils 0.26 Absolute Basophils 0.02 VBG Lactate Sodium Potassium Chloride Carbon Dioxide Anion Gap BUN Creatinine Est GFR (CKD-EPI 2020) Glucose Calcium Magnesium Total Bilirubin AST ALT Alkaline Phosphatase Total Protein Albumin Lipase Procalcitonin Urine Color Urine Clarity Urine pH Ur Specific [place] Urine Protein Urine Ketones Urine Blood Urine Nitrite Urine Bilirubin Urine Urobilinogen Ur Leukocyte Esterase Urine RBC Urine WBC Ur Epithelial Cells Urine Crystals Urine Bacteria Urine Casts Urine Mucus Ur Culture Indicated? Urine Glucose COVID-19 Source SARS-CoV-2 (PCR) Influenza Type A (PCR) Influenza Type B (PCR) RSV (PCR) Patient ABO/Rh Antibody Screen Time Spent with Patient Time Spent with Patient: 35-49 minutes Time was spent: preparing to see the patient(eg.review tests), ordering medications,tests, procedures, referring, communicating with other health healthcare network pricing consultant, indepentently interpreting results, counseling the patient and care coordination
[2023-07-21] MEDS: Psyllium PKT 1 EACH PO ×2 (09:05→20:59)
[2023-07-21] MEDS: rOPINIRole 1 MG TAB PO (09:05)
[2023-07-21] MEDS: ARIPiprazole 15 MG TAB 30 MG PO (09:05)
[2023-07-21] MEDS: Cholecalciferol (Vitamin D3) 1,000 UNIT TAB 2000 UNITS PO (09:05)
[2023-07-21] MEDS: Multivitamin TAB 1 TAB PO (09:06)
[2023-07-21] MEDS: CEFEPIME 2 GM in Normal Saline 100 ML IVPB ×2 (10:36→20:59)
[2023-07-21 10:37] LABS: Ferritin 268 ng/mL (26-388)
[2023-07-21] MEDS: Normal Saline 500 ML 30 ML IV (10:37)
[2023-07-21 11:24] LABS: Lyme Ab w Rflx to Lyme Confirm Negative (Negative)
--- NOTE | 2023-07-21 14:02 | PHA.REVIEW2 ---
Pharmacy Admission Review Admission Clinical Review Admission Pharmacy Review: (Updated 07/21/23 @ 11:04 by Krissy Lovelace MD) Elevated procalcitonin (Acute) Transaminitis (Acute) Rectal bleeding (Acute) Sepsis (Acute) Fever of unknown origin (Acute) Acute hypotension (Acute) No Known Allergies Allergy (Unverified 07/20/23 09:51) Resuscitation Status Full Code Height 5 ft 3 in Weight 128.14 kg Pharmacy Admission Review Renal Dosing Renal Dosing: BUN 32 mg/dL (7-18) H 07/21/23 06:05 Creatinine 1.2 mg/dL (0.70-1.30) 07/21/23 06:05 Medications needing adjustments: Reviewed (crcl = 96, adjustments not needed) Anticoagulation Anticoagulation: Hgb 12.2 g/dL (13.5-17.5) L 07/21/23 06:05 Hct 36.8 % (40.0-50.0) L 07/21/23 06:05 Plt Count 167 10^3/uL (130-400) 07/21/23 06:05 Creatinine 1.2 mg/dL (0.70-1.30) 07/21/23 06:05 DVT Prophylaxis: Reviewed (none. ?rectal bleed) Therapeutic Anticoagulation: N/A Opiate Usage Evaluate Pain Scale/Pains Meds: N/A Relevant Labs Relevant Labs: Sodium 135 mmol/L (136-145) L 07/21/23 06:05 Potassium 3.8 mmol/L (3.5-5.1) 07/21/23 06:05 Chloride 105 mmol/L (98-107) 07/21/23 06:05 Magnesium 1.6 mg/dL (1.8-2.4) L 07/20/23 10:30 Electrolytes, C-Reactive P, ESR: Reviewed DM Control DM Control: Reviewed (last A1c = 5.9% 06/23/23 indicating prediabetes, recently started on ozempic for weight loss / will also provide diabetic coverage) Cardiac Review BP, HR, EF%: Reviewed (BP running low, norepi drip ordered but was never needed, now dc'd) QTc Review QTc: Not Reviewed (no EKG in chart to review) IV to PO Switch IV Medications: Reviewed (continue IV abx until blood cultures finalized (preliminary no growth 24 hrs)) Home Meds Home Med List reviewed: Reviewed Relevent Home Meds Not ordered & why?: amiloride, olmesartan-HCTZ, prazosin -- hypotension. ozempic - non formulary, once weekly dose can resume upon discharge. removed multiple meds pt reported not taking (confirmed no recent fill history): asenapine, dexedrine, docusate, lithium, risperidone Current Meds Current Medication Order Review: Reviewed Pharmacy Antibiotic Review Pharmacy Antibiotic Activity: Reviewed, no change (cefepime 2g q12h + doxy 100 mg IV q12h, indication: sepsis, source: unknown, possibly prostate) Comments: continue IV abx until blood cultures finalized then switch to PO
--- NOTE | 2023-07-21 14:20 | UCONE_ITS ---
Date of service: 07/21/23 Time of Service: 14:21 Assessment and Plan Assessment and plan (1) Fever of unknown origin: Status: Acute Assessment and plan: There was no evidence of any acute UTI on his admission urinalysis, but he does have a history of previous urinary tract infection. As such, he certainly could have a small nidus of bacteria remaining in the prostate. In reviewing his CT scan, there is no evidence of any periprosthetic fluid collection or obvious large abscess. If no other source of infection is identified, treating him for a chronic bacterial prostatitis is certainly reasonable. Once he is discharged on oral antibiotics, I should see him back in the office in about 6 weeks for reevaluation. History of Present Illness History of Present Illness Chief Complaint: Fever Narrative: This is a 43-year-old gentleman who was admitted to the hospital yesterday with fevers and chills. He had some episodes of hypotension and tachycardia. He was admitted for broad-spectrum antibiotics and supportive care while his cultures were pending. His symptoms have only been present since he started on his new diabetic medication a week or 2 ago. I have been asked to see him regarding the possibility of prostatitis being the source of his fever. The patient does have a history of recurrent urinary tract infections. Only one of the infections occurred here at our facility and the urine culture at that time showed pansensitive E. coli. He is not aware of his other culture sensitivity results. He is not having any dysuria or gross hematuria at this time. He has no frequency or urgency. He does have some lower abdominal and pelvic discomfort e specially when he sits. He had a digital rectal exam by Dr. Hilton and there was some tenderness identified on the prostate area. His urinalysis at the time of admission was unremarkable. Urine culture is still pending. Blood cultures are pending. Review of Systems Narrative: No vision change or dysphasia Hx Diabetes. No thyroid Sleep apnea. No hemoptysis No chest pain or palpitations Rectal bleeding. No nausea, vomiting, hepatitis, ulcers, jaundice No seizures, strokes or peripheral neuropathy No bleeding disorders or anemia No gout PFSH All Active Problems (Updated 07/21/23 @ 11:04 by Krissy Lovelace MD) Elevated procalcitonin (Acute) Obstructive sleep apnea (Chronic) Transaminitis (Acute) Rectal bleeding (Acute) Sepsis (Acute) Fever of unknown origin (Acute) Acute hypotension (Acute) Medical History Dyslipidemia GERD (gastroesophageal reflux disease) Morbid obesity Restless leg syndrome Schizoaffective disorder Vitamin D deficiency Social History Smoking/Tobacco Use Status: Former Tobacco Use Smoking risk assessment performed?: Yes Alcohol Intake: never Drug use: Never Substance use type: does not use Housing: house Do you feel safe at home: Yes Do you feel safe in your relationship?: Yes Exam Narrative Exam Narrative: He is in no beast gentleman who appears comfortable at this time. He does not appear septic or toxic. His vital signs are documented elsewhere His chest wall motion is normal. He is not short of breath at rest. There is no CVA tenderness His abdomen is obese but soft with no guarding or rebound tenderness. There is no peritoneal signs. The urethral meatus is patent with no erythema or discharge. The testes are sof t with no masses. He is awake and alert. His urinalysis from admission is not overly concerning for bacteriuria. Urine culture is still pending. Results Last Vital Signs Temp 37.0 C 07/21/23 08:30 Pulse 71 07/21/23 08:01 Resp 19 07/21/23 09:00 BP 101/70 07/21/23 08:01 Pulse Ox 96 07/21/23 09:00 Labs 07/21/23 06:05 07/21/23 06:05 Labs: Laboratory Results - last 24 hr 07/20/23 07/20/23 07/20/23 20:10 20:10 20:10 WBC RBC Hgb 12.5 L Hct 37.0 L MCV MCH MCHC RDW Plt Count MPV Immature Gran % Neutrophils % Lymphocytes % Monocytes % Eosinophils % Basophils % Nucleated RBC % Absolute Neutrophils Absolute Lymphocytes Absolute Monocytes Absolute Eosinophils Absolute Basophils VBG Lactate 0.5 L Sodium Potassium Chloride Carbon Dioxide Anion Gap BUN Creatinine Est GFR (CKD-EPI 2020) Glucose Calcium Ferritin Total Bilirubin AST ALT Alkaline Phosphatase Total Protein Albumin Patient ABO/Rh O Positive Antibody Screen NEGATIVE 07/21/23 07/21/23 07/21/23 06:05 06:05 06:05 WBC 5.42 RBC 4.05 L Hgb 12.2 L Hct 36.8 L MCV 91 MCH 30.1 MCHC 33.2 RDW 13.3 Plt Count 167 MPV 10.5 Immature Gran % 0.7 Neutrophils % 60.9 Lymphocytes % 19.0 Monocytes % 14.2 Eosinophils % 4.8 Basophils % 0.4 Nucleated RBC % 0.0 Absolute Neutrophils 3.30 Absolute Lymphocytes 1.03 L Absolute Monocytes 0.77 Absolute Eosinophils 0.26 Absolute Basophils 0.02 VBG Lactate Sodium 135 L Potassium 3.8 Chloride 105 Carbon Dioxide 20.7 L Anion Gap 9.3 BUN 32 H Creatinine 1.2 Est GFR (CKD-EPI 2020) 77.43 Glucose 107 H Calcium 8.6 Ferritin 268 Total Bilirubin 0.3 AST 48 H ALT 77 H Alkaline Phosphatase 79 Total Protein 6.0 L Albumin 2.5 L Patient ABO/Rh Antibody Screen
[2023-07-21] MEDS: Sertraline 100 MG TAB 50 MG PO (21:00)
[2023-07-21] MEDS: Melatonin 3 MG TAB PO (21:00)
[2023-07-21] MEDS: busPIRone 15 MG TAB PO (21:06)
[2023-07-22] MEDS: DOXYCYCLINE 100 MG in Normal Saline 100 ML IVPB (02:28)
[2023-07-22 07:27] LABS: Abs Immature Grans 0.03 10^3/uL (0.0-0.06); Absolute Basophil Count 0.02 10^3/uL (0.0-0.2); Absolute Eosinophil Count 0.13 10^3/uL (0.0-0.7); Absolute Lymphocyte Count 1.24 10^3/uL (1.2-3.4); Absolute Monocyte Count 0.66 10^3/uL (0.1-0.8); Absolute Neutrophil Count 5.62 10^3/uL (1.2-6.7); Basophils % 0.3; Eosinophils % 1.7; HGB 13.2 g/dL (13.5-17.5); Immature Grans % 0.4; Lymphocytes % 16.1; MCH 30.4 pg (27.0-33.0); MCHC 33.8 % (32.0-36.0); MCV 90 fL (80-95); MPV 10.2 fL (8.0-11.0); Monocytes % 8.6; Neutrophils % 72.9; Platelet Count 204 10^3/uL (130-400); RBC 4.34 10^6/uL (4.36-5.78); RDW 13.1 % (11.8-14.1); RDW-SD 43.3 fL
[2023-07-22 07:34] VITALS: BP 108/69; PULSE 66; RESP 18; TEMP 36.7; O2SAT 97
[2023-07-22 07:43] LABS: ALT 77 U/L (16-63); AST 38 U/L (15-37); Albumin 2.9 g/dL (3.4-5.0); Alkaline Phosphatase 90 U/L (46-116); Anion Gap 10.3 mmol/L (3-11); BUN 19 mg/dL (7-18); Bilirubin, Total 0.4 mg/dL (0.2-1.0); C-Reactive Protein 2.67 mg/dL (0.0-0.3); CO2 22.7 mmol/L (21.0-32.0); Calcium 9.3 mg/dL (8.5-10.1); Chloride 102 mmol/L (98-107); Estimated GFR 96.37 (mL/min/1.73m2); Glucose 99 mg/dL (74-106); Potassium 3.9 mmol/L (3.5-5.1); Sodium 135 mmol/L (136-145); Total Protein 6.9 g/dL (6.4-8.2)
[2023-07-22 08:10] LABS: Procalcitonin 2.4 ng/mL
[2023-07-22] MEDS: busPIRone 15 MG TAB 30 MG PO ×2 (08:17→12:28)
[2023-07-22] MEDS: Pantoprazole 40 MG TABCR PO (08:17)
[2023-07-22] MEDS: rOPINIRole 1 MG TAB PO (08:17)
[2023-07-22] MEDS: Psyllium PKT 1 EACH PO (08:17)
[2023-07-22] MEDS: Cholecalciferol (Vitamin D3) 1,000 UNIT TAB 2000 UNITS PO (08:17)
[2023-07-22] MEDS: ARIPiprazole 15 MG TAB 30 MG PO (08:17)
[2023-07-22] MEDS: Multivitamin TAB 1 TAB PO (08:17)
--- NOTE | 2023-07-22 08:39 | PDOC.CMPRO ---
Date of service: 07/22/23 Time of Service: 08:39 Care Management Progress Note Progress Note Text Progress Note Text: S/O: A:Zhen is a 43 year old man admitted on 07/20/23 witth sepsis P:Anticipate Zhen will be discharged back to his [facility] when medically cleared. He will follow up with his community providers and plan of care and transport with caregivers. CM will follow and continue to assess for discharge needs.
[2023-07-22] MEDS: Normal Saline Flush 10 ML SYR IVP (09:56)
[2023-07-22] MEDS: CEFEPIME 2 GM in Normal Saline 100 ML IVPB (09:57)
[2023-07-22] MEDS: Normal Saline 500 ML 100 ML IV (09:57)
--- NOTE | 2023-07-22 09:58 | DSE_ITS ---
Date of service: 07/22/23 Time of Service: 09:58 DS: Diagnosis Discharge Diagnosis (1) Sepsis: Status: Resolved (2) Fever of unknown origin: Status: Resolved (3) Acute hypotension: Status: Resolved (4) Rectal bleeding: Status: Acute (5) MARILU (acute kidney injury): Status: Resolved (6) Transaminitis: Status: Resolved Discharge Plan Disposition Patient Disposition: Home Condition: Improving Discharge Details Reason For Visit: Sepsis Admit Date/Time: 07/20/23 15:08 Admit Provider: Tucker Hilton Attending Provider: Tucker Hilton [facility]: 43 yr old white male who lives in a [facility] w/ PMH of ALY (on CPAP), HTN, HLD, schizoaffective disorder, GERD, morbid obesity, priapism, s/p surgical correction of the same, who reports that one week ago he had isolated incident of chills and rigors that resolved spontaneously and he felt fine the rest of the week. However, beginning this morning he has had feeling of being chilled, and has had rigors, but no associated dyspnea, cough, dysuria, hematuria, back pain or abdominal pain and no nausea or vomting. However he has had daily rectal bleeding w/ bright red blood with wiping and on the stools. This he associated w/ the onset of his use of Ozempic prescribed for his weight control. Evaluation in the ED indicated he had sepsis of unknown origin as he had hypotension, tachycardia, MARILU and elevated procalcitonin. CXR and CT scan did not suggest a source however patient had complained of tenesmus and rectal bleeding and upon digital exam he was found to have bleeding internal hemorrhoid and tender enlarged prostate. He was treated w/ iv antibiotics (Zosyn and Vancomcyin in the ED but later changed to cefepime. He was resuscitated w/ iv fluids and never required vasopressors. He was admitted to the ICU and his vital signs stabilized and he was transferred to medical floor the next day. His rectral bleeding was treated w/ steroidal topical preparations and surgical consult was obtained. Urology consult was also obtained. When his blood cultures came back no growth and his MARILU resoled w/ iv hydration, he was discharged home to complete 2 week course of Levaquin 750 mg daily. He was told to follow up w/ Dr. Finney in 1 tp 2 weeks and w/ Dr. Sweeney in 3 to 4 weeks. Home Meds and New Rx's Prescriptions: New levofloxacin 750 mg tablet 750 mg PO DAILY 14 Days Qty: 14 0RF Metamucil Sugar-Free (aspart) 3.4 gram/5.8 gram Powder See Rx Instructions .ROUTE .COMPLEX Qty: 660 0RF Rx Instructions: take one scoopful and mix w/ 8 ounces of water or juice and drink twice a day Preparation H(pe,cb) 0.25-88.44 % Suppository 1 supp OR BID PRN PRNQty: 30 0RF Proctofoam HC 1-1 % Foam 1 applic OR TID Qty: 10 0RF Continued simvastatin 40 MG tablet 40 mg PO DAILY multivitamin [Multi-Day] 1 EACH tablet 1 tab PO DAILY ropinirole [Requip] 1 MG tablet 1 mg PO DAILY sertraline [Zoloft] 100 MG tablet 50 mg PO HS omeprazole 20 MG capsule,delayed release(DR/EC) 10 mg PO DAILY buspirone 15 MG tablet See Rx Instructions .ROUTE .COMPLEX Patient Comments: takes 30 mg morning and noon, 15mg at night 07/05/16 Rx Instructions: Take 30 mg in AM, 30 mg at noon and 15 mg at HS cholecalciferol (vitamin D3) [Vitamin D3] 2,000 UNIT capsule 2,000 unit PO DAILY Florence 3-6-9 Triple Florence 1,200 MG capsule 2,400 mg PO DAILY aripiprazole [Abilify] 15 MG tablet 30 mg PO DAILY melatonin 3 mg Tablet 3 mg PO HS amiloride 5 mg Tablet 2.5 mg PO DAILY prazosin 2 mg capsule 2 mg PO HS olmesartan-hydrochlorothiazide 40-25 mg Tablet 1 tab PO DAILY magnesium gluconate 27 mg magnesium (500 mg) tablet 500 mg PO BID Ozempic 0.25 mg or 0.5 mg (2 mg/3 mL) pen injector See Rx Instructions .ROUTE .COMPLEX Patient Comments: Inject 1/4 mg subcutaneously once a week start at 0.25 mg for 4 weeks, then 0.5 mg Rx Instructions: Inject 1/4 mg subcutaneously once a week start at 0.25 mg for 4 weeks, then 0.5 mg Discharge Instructions Instructions: Hemorrhoids (DC), Rectal Bleeding (DC), Prostatitis (DC) Stand Alone Forms: Nursing Discharge Form Referrals: Sammy Sweeney MD [ [facility] STAFF PHYSICIAN] - 08/19/23 1:00 pm Marin Nix [Primary Care Provider] - 08/05/23 10:50 am Juan Carlos Finney MD [ [facility] STAFF PHYSICIAN] - 08/06/23 8:30 am Activity:: Activity as Tolerated Equipment/Supplies:: No Equipment Needed Diet:: Normal Diet Discharge Orders Discharge Orders: Discharge Order (Routine); Ordered 07/22/23 Ordered By: Tucker Hilton Discharge Data Discharge Date/Time-TO BE ENTERED AT DEPARTURE: 07/22/23 12:59 DS: Summary Time Spent with Patient providing and/or coordinating discharge services: Less than 30 minutes Specific discharge activities: Interview/exam of patient; review of discharge instructions, completion of prescriptions/discharge instructions; discussion w/ nursing and CM; documentation of hospital visit Status at Discharge Functional status at discharge: independent ambulation Overall status at discharge: patient is back to baseline Mental Status: mental status grossly normal Speech and Movement: speech and movement normal Mood: congruent mood Affect: normal affect Exam Narrative Exam Narrative: Zhen denies any abdominal pain nausea or vomiting. Rectal bleeding has improved just trace of blood on the stool scale. Rectal pain is improved. Abdomen is obese soft nontender no guarding rebound tenderness Lungs clear to auscultation Heart is regular rate and rhythm Psych Mental Status: mental status grossly normal Speech and Movement: speech and movement normal Mood: congruent mood Affect: normal affect DS: Data Vitals/I&O Vitals and I&O: Vital Signs Temperature 36.7 C 07/22/23 07:34 Temperature Source Tympanic 07/22/23 07:34 Pulse 66 07/22/23 07:34 Pulse Rhythm Regular 07/21/23 22:00 Pulse 79 07/21/23 09:00 Respiratory Rate 18 07/22/23 07:34 Respiratory Effort Normal 07/21/23 22:00 Respiratory Depth Normal 07/21/23 22:00 Respiratory Pattern Normal 07/21/23 22:00 Blood Pressure 108/69 07/22/23 07:34 Blood Pressure Mean 86 07/21/23 16:00 Blood Pressure Position Sitting 07/21/23 16:00 Pulse Oximetry 97 07/22/23 07:34 Oxygen Delivery Method Room Air 07/22/23 07:34 Oxygen Flow Rate 0 07/22/23 07:34 Fraction of Inspired Oxygen (FIO2) 21 07/21/23 08:00 Pain Level 0 07/22/23 07:34 Comment Pt. denies pain at this time. 07/22/23 07:34 Intake & Output 07/21/23 07/21/23 07/22/23 11:59 23:59 11:59 Intake Total 424 / 1795 1371 / 1795 620 / 620 Output Total 1200 / 1200 Balance -776 / 595 1371 / 595 620 / 620 Intake: IV 424 / 734 310 / 734 70 / 70 Oral 1061 / 1061 550 / 550 Output: Urine 1200 / 1200 Other: Urine Color Yellow Urine Appearance Clear Clear Urine Odor Normal Comment Per pt. report, void x1 in the toilet earlier this morning. Voiding Methods Urinal Toilet Data Completed and Pending Labs on day of discharge: Labs from last 24 hours 07/22/23 07/22/23 07/22/23 06:35 06:35 06:35 WBC 7.70 RBC 4.34 L Hgb 13.2 L Hct 39.0 L MCV 90 MCH 30.4 MCHC 33.8 RDW 13.1 Plt Count 204 MPV 10.2 Immature Gran % 0.4 Neutrophils % 72.9 Lymphocytes % 16.1 Monocytes % 8.6 Eosinophils % 1.7 Basophils % 0.3 Nucleated RBC % 0.0 Absolute Neutrophils 5.62 Absolute Lymphocytes 1.24 Absolute Monocytes 0.66 Absolute Eosinophils 0.13 Absolute Basophils 0.02 Sodium 135 L Potassium 3.9 Chloride 102 Carbon Dioxide 22.7 Anion Gap 10.3 BUN 19 H Creatinine 1.0 Est GFR (CKD-EPI 2020) 96.37 Glucose 99 Calcium 9.3 Ferritin Total Bilirubin 0.4 AST 38 H ALT 77 H Alkaline Phosphatase 90 C-Reactive Protein 2.67 H Total Protein 6.9 Albumin 2.9 L Procalcitonin 2.4 Lyme Disease Antibody 07/21/23 07/20/23 06:05 10:30 WBC RBC Hgb Hct MCV MCH MCHC RDW Plt Count MPV Immature Gran % Neutrophils % Lymphocytes % Monocytes % Eosinophils % Basophils % Nucleated RBC % Absolute Neutrophils Absolute Lymphocytes Absolute Monocytes Absolute Eosinophils Absolute Basophils Sodium Potassium Chloride Carbon Dioxide Anion Gap BUN Creatinine Est GFR (CKD-EPI 2020) Glucose Calcium Ferritin 268 Total Bilirubin AST ALT Alkaline Phosphatase C-Reactive Protein Total Protein Albumin Procalcitonin Lyme Disease Antibody Negative 07/21/23 10:10 Urine - Voided Urine Culture - Pending Preliminary micro results at discharge 07/20/23 12:25 Blood Culture - Preliminary Blood NO GROWTH 24 HOURS 07/20/23 10:30 Blood Culture - Preliminary Blood NO GROWTH 24 HOURS 07/21/23 10:10 Urine Culture - Pending Urine - Voided PFSH All Active Problems (Updated 07/23/23 @ 01:15 by Tucker Hilton MD) Obstructive sleep apnea (Chronic) Rectal bleeding (Acute) Medical History Dyslipidemia GERD (gastroesophageal reflux disease) Morbid obesity Restless leg syndrome Schizoaffective disorder Vitamin D deficiency Social History Smoking/Tobacco Use Status: Former Tobacco Use Smoking risk assessment performed?: Yes Alcohol Intake: never Drug use: Never Substance use type: does not use Housing: house Do you feel safe at home: Yes Do you feel safe in your relationship?: Yes Time Spent with Patient Time Spent with Patient: <45 minutes Time was spent: preparing to see the patient(eg.review tests), ordering medications,tests, procedures, referring, communicating with other health coronary care unit nurse, indepentently interpreting results, counseling the patient and care coordination
[2023-07-22 12:45] LABS: Anaplasma phagocytophilum Negative (Negative); B. miyamotoi PCR Negative (Negative); Babesia divergens/MO-1 Negative (Negative); Babesia duncani Negative (Negative); Babesia microti Negative (Negative); Ehrlichia chaffeensis Negative (Negative); Ehrlichia ewingii/canis Negative (Negative); Ehrlichia muris eauclairensis Negative (Negative)
--- NOTE | 2023-07-22 14:30 | PDOC.CMDIS ---
Date of service: 07/22/23 Time of Service: 14:30 LACE Index Scoring Tool Questions: Length of Stay (in days): 2 Was the patient admitted via the E.D.?: Yes E.D. Visits: 1 Answers: Total Score: 6 Risk of Readmission: Low Risk Care Management Discharge Plan Reason for Hospitalization: sepsis Discharge Plan: [facility]. He will follow up with his community providers and plan of care and transport with caregivers. Patient/Family Education Needs: review of discharge instructions, limitations, activity, follow up plan, discuss Ask Me Three
[2023-07-22 15:18] LABS: ANA Interpretation Negative (Negative)
[2023-07-23 12:09] LABS: Myeloperoxidase Ab IgG <0.2 U; Proteinase 3 Ab (PR3) <0.2 U
== END 2023-07-22 12:59 | disposition home or self-care (01) | DRG 872 ==
LOC: ER 11:02 → ICU 17:04 → MS 07-21 15:58
PROVIDERS: Student in an Organized Health Care Education/Training Program; Admitting Provider Internal Medicine; Emergency Provider Nurse Practitioner Family; PCP Family Medicine; Visit Provider Internal Medicine
DX: A41.9 Sepsis, unspecified organism (principal); N17.9 Acute kidney failure, unspecified; K62.5 Hemorrhage of anus and rectum; Z68.43 Body mass index [BMI] 50.0-59.9, adult; R74.01 Elevation of levels of liver transaminase levels; F25.9 Schizoaffective disorder, unspecified; E78.5 Hyperlipidemia, unspecified; E66.01 Morbid (severe) obesity due to excess calories; G47.33 Obstructive sleep apnea (adult) (pediatric); I10 Essential (primary) hypertension; K21.9 Gastro-esophageal reflux disease without esophagitis; K76.0 Fatty (change of) liver, not elsewhere classified; E86.0 Dehydration; G25.81 Restless legs syndrome; E55.9 Vitamin D deficiency, unspecified; Z87.891 Personal history of nicotine dependence; K64.8 Other hemorrhoids; N41.1 Chronic prostatitis
CPT/HCPCS: 36415; 80053; 83690; 84145; 86850; 86900; 86901; 87040; 87081; 87637; 87798; 93308; 96361; 96365; 96366; 96367; 96368; 96375; 99222; 99285; J1650; 71046; 74177; 81003; 81015; 82728; 83516; 83605; 83735; 85014; 85018; 85025; 86038; 86140; 86618; 87086; 99232; 99238; 99291; J0131; J1885; J2543; J3490

== ENCOUNTER → 2023-07-21 11:19 | Outpatient (BNVA) | payer MEDICARE, MEDICAID, SELFPAY | PROVIDERS: PCP Family Medicine; Referring Provider Family Medicine; Visit Provider Urology ==

== ENCOUNTER → 2023-09-16 11:02 | Outpatient (BNVA) | payer MEDICARE, MEDICAID, SELFPAY | PROVIDERS: PCP Family Medicine; Referring Provider Family Medicine; Visit Provider Nurse Practitioner Gerontology | DX: N41.9 Inflammatory disease of prostate, unspecified (principal); R39.15 Urgency of urination | CPT/HCPCS: 81003; 99215 ==

== ENCOUNTER 2024-01-12 17:18 | Outpatient (REF) | payer MEDICARE, MEDICAID, SELFPAY ==
[2024-01-12 20:11] LABS: HCT 42.1 % (40.0-50.0); HGB 13.7 g/dL (13.5-17.5); MCH 29.2 pg (27.0-33.0); MCHC 32.5 % (32.0-36.0); MCV 90 fL (80-95); MPV 10.6 fL (8.0-11.0); Platelet Count 280 10^3/uL (130-400); RBC 4.69 10^6/uL (4.36-5.78); RDW 12.8 % (11.8-14.1); RDW-SD 41.9 fL; WBC 9.03 10^3/uL (4.4-10.8)
[2024-01-12 20:32] LABS: Iron 79 ug/dL (65-175); Total Iron Binding Capacity 365 ug/dL (250-450); Transferrin Sat 22 % (20-55)
[2024-01-12 20:38] LABS: Ferritin 93 ng/mL (26-388); Magnesium 1.9 mg/dL (1.8-2.4)
== END 2024-01-12 17:19 | disposition home or self-care (01) ==
LOC: NCHCN 17:18
PROVIDERS: PCP Family Medicine; Visit Provider Family Medicine
DX: D50.0 Iron deficiency anemia secondary to blood loss (chronic) (principal); R73.03 Prediabetes; E83.42 Hypomagnesemia
CPT/HCPCS: 85027; 82728; 83036; 83540; 83550; 83735

== ENCOUNTER → 2024-02-16 09:57 | Outpatient (BNVA) | payer MEDICARE, MEDICAID, SELFPAY | PROVIDERS: PCP Family Medicine; Referring Provider Family Medicine; Visit Provider Nurse Practitioner Gerontology | DX: R39.15 Urgency of urination (principal) | CPT/HCPCS: 51798; 81003; 99213 ==

== ENCOUNTER 2024-03-19 15:33 | Outpatient (REF) | payer MEDICARE, MEDICAID, SELFPAY ==
[2024-03-19 18:52] LABS: Abs Immature Grans 0.04 10^3/uL (0.0-0.06); Absolute Basophil Count 0.02 10^3/uL (0.0-0.2); Absolute Eosinophil Count 0.09 10^3/uL (0.0-0.7); Absolute Monocyte Count 0.61 10^3/uL (0.1-0.8); Absolute Neutrophil Count 5.26 10^3/uL (1.2-6.7); Basophils % 0.2 %; Eosinophils % 1.1 %; HCT 41.3 % (40.0-50.0); HGB 13.8 g/dL (13.5-17.5); Immature Grans % 0.5 %; Lymphocytes % 26.8 %; MCH 30.1 pg (27.0-33.0); MCHC 33.4 % (32.0-36.0); MCV 90 fL (80-95); MPV 10.6 fL (8.0-11.0); Monocytes % 7.4 %; Platelet Count 260 10^3/uL (130-400); RBC 4.59 10^6/uL (4.36-5.78); RDW 13.2 % (11.8-14.1); RDW-SD 42.7 fL; WBC 8.22 10^3/uL (4.4-10.8)
[2024-03-19 19:05] LABS: ALT 63 U/L (16-63); AST 32 U/L (15-37); Albumin 3.6 g/dL (3.4-5.0); Alkaline Phosphatase 109 U/L (46-116); Anion Gap 9.7 mmol/L (3-11); BUN 19 mg/dL (7-18); Bilirubin, Total 0.4 mg/dL (0.2-1.0); CO2 25.3 mmol/L (21.0-32.0); CREATININE 0.8 mg/dL (0.70-1.30); Calcium 8.4 mg/dL (8.5-10.1); Chloride 105 mmol/L (98-107); Estimated GFR 112.61 (mL/min/1.73m2); Glucose 159 mg/dL (74-106); Potassium 3.9 mmol/L (3.5-5.1); Sodium 140 mmol/L (136-145); Total Protein 6.7 g/dL (6.4-8.2)
[2024-03-19 19:06] LABS: NT-proBNP < 5 pg/mL (<300)
== END 2024-03-19 15:34 | disposition home or self-care (01) ==
LOC: NCHCN 15:33
PROVIDERS: PCP Student in an Organized Health Care Education/Training Program; Visit Provider Student in an Organized Health Care Education/Training Program
DX: D64.9 Anemia, unspecified (principal); R60.0 Localized edema; K21.9 Gastro-esophageal reflux disease without esophagitis
CPT/HCPCS: 80053; 83735; 83880; 85025

== ENCOUNTER 2024-07-14 18:05 | Outpatient (REF) | payer MEDICARE, MEDICAID, SELFPAY ==
[2024-07-14 16:14] LABS: Anion Gap 8.2 mmol/L (3-11); BUN 21 mg/dL (7-18); CO2 27.8 mmol/L (21.0-32.0); CREATININE 0.9 mg/dL (0.70-1.30); Calcium 8.8 mg/dL (8.5-10.1); Chloride 100 mmol/L (98-107); Estimated GFR 108.68 (mL/min/1.73m2); Glucose 93 mg/dL (74-106); Magnesium 2.1 mg/dL (1.8-2.4); Potassium 4.1 mmol/L (3.5-5.1); Sodium 136 mmol/L (136-145)
== END 2024-07-14 18:06 | disposition home or self-care (01) ==
LOC: NCHCN 18:05
PROVIDERS: PCP Student in an Organized Health Care Education/Training Program; Visit Provider Student in an Organized Health Care Education/Training Program
DX: R60.0 Localized edema (principal)
CPT/HCPCS: 80048; 83735

== ENCOUNTER → 2024-11-09 13:57 | Outpatient (BNVA) | payer MEDICARE, MEDICAID, SELFPAY | PROVIDERS: PCP Student in an Organized Health Care Education/Training Program; Referring Provider Student in an Organized Health Care Education/Training Program; Visit Provider Nurse Practitioner Gerontology | DX: R39.15 Urgency of urination (principal) | CPT/HCPCS: 51798; 99213 ==

== ENCOUNTER 2024-11-11 12:18 | Outpatient (REF) | payer MEDICARE, MEDICAID, SELFPAY ==
[2024-11-11 16:38] LABS: Anion Gap 13.4 mmol/L (3-11); BUN 28 mg/dL (7-18); CO2 22.6 mmol/L (21.0-32.0); CREATININE 1.1 mg/dL (0.70-1.30); Calcium 9.4 mg/dL (8.5-10.1); Chloride 103 mmol/L (98-107); Estimated GFR 85.42 (mL/min/1.73m2); Glucose 105 mg/dL (74-106); Potassium 3.2 mmol/L (3.5-5.1); Sodium 139 mmol/L (136-145)
== END 2024-11-11 12:19 | disposition home or self-care (01) ==
LOC: NCHCN 12:18
PROVIDERS: PCP Student in an Organized Health Care Education/Training Program; Visit Provider Student in an Organized Health Care Education/Training Program
DX: R25.2 Cramp and spasm (principal)
CPT/HCPCS: 80048

== ENCOUNTER 2024-11-24 13:34 | Outpatient (REF) | payer MEDICARE, MEDICAID, SELFPAY | END 2024-11-24 13:35 | disposition home or self-care (01) | LOC: NCHCN 13:34 | PROVIDERS: PCP Student in an Organized Health Care Education/Training Program; Visit Provider Student in an Organized Health Care Education/Training Program | DX: R73.03 Prediabetes (principal) | CPT/HCPCS: 83036 ==

== ENCOUNTER → 2024-12-07 10:50 | Outpatient (BNVA) | payer MEDICARE, MEDICAID, SELFPAY | PROVIDERS: PCP Student in an Organized Health Care Education/Training Program; Referring Provider Student in an Organized Health Care Education/Training Program; Visit Provider Podiatrist | DX: E11.8 Type 2 diabetes mellitus with unspecified complications (principal); B35.1 Tinea unguium; L60.3 Nail dystrophy; M79.671 Pain in right foot; M79.672 Pain in left foot; L84 Corns and callosities; B35.3 Tinea pedis; R09.89 Other specified symptoms and signs involving the circulatory and respiratory systems; R60.0 Localized edema; R23.8 Other skin changes; L60.2 Onychogryphosis; L60.8 Other nail disorders | CPT/HCPCS: 11721; 99214 ==

== ENCOUNTER 2024-12-21 15:06 | Outpatient (REF) | payer MEDICARE, MEDICAID, SELFPAY | END 2024-12-21 15:07 | disposition home or self-care (01) | LOC: NCHCN 15:06 | PROVIDERS: PCP Student in an Organized Health Care Education/Training Program; Visit Provider Student in an Organized Health Care Education/Training Program | DX: E87.6 Hypokalemia (principal) | CPT/HCPCS: 84132 ==

== ENCOUNTER 2025-02-07 10:35 | Outpatient (REF) | payer MEDICARE, MEDICAID, SELFPAY ==
[2025-02-07 16:08] LABS: Anion Gap 12.4 mmol/L (3-11); BUN 18 mg/dL (7-18); CO2 23.6 mmol/L (21.0-32.0); CREATININE 0.8 mg/dL (0.70-1.30); Calcium 9.2 mg/dL (8.5-10.1); Chloride 103 mmol/L (98-107); Estimated GFR 112.61 (mL/min/1.73m2); Glucose 100 mg/dL (74-106); Sodium 139 mmol/L (136-145)
== END 2025-02-07 10:36 | disposition home or self-care (01) ==
LOC: NCHCN 10:35
PROVIDERS: PCP Student in an Organized Health Care Education/Training Program; Visit Provider Student in an Organized Health Care Education/Training Program
DX: E87.6 Hypokalemia (principal)
CPT/HCPCS: 80048

== ENCOUNTER → 2025-04-06 09:54 | Outpatient (BNVA) | payer MEDICARE, MEDICAID, SELFPAY | PROVIDERS: PCP Student in an Organized Health Care Education/Training Program; Referring Provider Student in an Organized Health Care Education/Training Program; Visit Provider Podiatrist | DX: L60.3 Nail dystrophy (principal); M79.674 Pain in right toe(s); M79.675 Pain in left toe(s); E11.8 Type 2 diabetes mellitus with unspecified complications; B35.1 Tinea unguium; B35.3 Tinea pedis; R60.0 Localized edema; R23.4 Changes in skin texture; L85.8 Other specified epidermal thickening; L60.2 Onychogryphosis; L60.8 Other nail disorders | CPT/HCPCS: 11721 ==

== ENCOUNTER 2025-06-17 00:49 | Outpatient (CLI) | payer MEDICARE, MEDICAID, SELFPAY ==
[2025-06-17 14:10] LABS: Hemoglobin A1C 6.1 % (<5.7)
[2025-06-17 15:36] LABS: Lithium < 0.2 mmol/L (0.6-1.2)
[2025-06-17 15:50] LABS: ALT 50 U/L (16-63); AST 26 U/L (15-37); Albumin 3.6 g/dL (3.4-5.0); Alkaline Phosphatase 134 U/L (46-116); Anion Gap 10.3 mmol/L (3-11); BUN 14 mg/dL (7-18); Bilirubin, Total 0.7 mg/dL (0.2-1.0); CO2 28.7 mmol/L (21.0-32.0); Calcium 9.2 mg/dL (8.5-10.1); Calculated LDL 78 mg/dL (<100); Chloride 100 mmol/L (98-107); Cholesterol 157 mg/dL (<200); Estimated GFR 108.01 (mL/min/1.73m2); Glucose 106 mg/dL (74-106); HDL Cholesterol 30 mg/dL (>or=40); Potassium 3.5 mmol/L (3.5-5.1); Sodium 139 mmol/L (136-145); TSH (W/Ref FT4) 0.44 uIU/mL (0.36-3.74); Total Protein 7.3 g/dL (6.4-8.2); Triglyceride 247 mg/dL (<150)
== END 2025-06-17 00:50 | disposition home or self-care (01) ==
LOC: LBO 00:49
PROVIDERS: PCP Student in an Organized Health Care Education/Training Program; Visit Provider Psychiatry & Neurology Psychiatry
DX: Z79.899 Other long term (current) drug therapy (principal)
CPT/HCPCS: 36415; 80053; 80061; 80178; 83036; 84443

== ENCOUNTER 2025-07-18 01:48 | Outpatient (CLI) | payer MEDICARE, MEDICAID, SELFPAY ==
[2025-07-18 08:26] LABS: Lithium 0.5 mmol/L (0.6-1.2)
[2025-07-19 14:46] LABS: T4 6.8 ug/dL (4.7-13.3); TSH 0.71 uIU/mL (0.36-3.74)
[2025-07-19 17:45] LABS: Cystatin C, S 0.89 mg/L
[2025-07-19 23:16] LABS: T3, Total 136 ng/dL (97-169)
== END 2025-07-18 01:49 | disposition home or self-care (01) ==
LOC: LBO 01:48
PROVIDERS: PCP Student in an Organized Health Care Education/Training Program; Visit Provider Psychiatry & Neurology Psychiatry
DX: Z79.899 Other long term (current) drug therapy (principal)
CPT/HCPCS: 36415; 82610; 80178; 84436; 84439; 84443; 84480

== ENCOUNTER → 2025-08-15 09:26 | Outpatient (BNVA) | payer MEDICARE, MEDICAID, SELFPAY | PROVIDERS: PCP Student in an Organized Health Care Education/Training Program; Referring Provider Student in an Organized Health Care Education/Training Program; Visit Provider Podiatrist | DX: L60.3 Nail dystrophy (principal); B35.1 Tinea unguium; M79.674 Pain in right toe(s); M79.675 Pain in left toe(s); L84 Corns and callosities; R23.4 Changes in skin texture; B35.3 Tinea pedis; Z91.199 Patient's noncompliance with other medical treatment and regimen due to unspecified reason; R60.0 Localized edema; L85.8 Other specified epidermal thickening; L60.2 Onychogryphosis; L60.8 Other nail disorders; E11.9 Type 2 diabetes mellitus without complications | CPT/HCPCS: 11721 ==

== ENCOUNTER 2025-08-24 17:25 | Emergency (ER) | payer MEDICARE, MEDICAID, SELFPAY ==
[2025-08-24 17:35] VITALS: BP 142/93; PULSE 83; RESP 20; TEMP 36.8; O2SAT 94
--- NOTE | 2025-08-24 17:45 | DI.CT_ITS ---
Exam(s) CT CHEST/ABD/PEL W EXAM: CT CHEST/ABD/PEL W CLINICAL HISTORY: LUQ pain, struck by table. TECHNIQUE: Imaging Protocol: Axial computed tomography images with coronal and sagittal reformatted images were created and reviewed. Computer aided detection (CAD) was utilized. CONTRAST MATERIAL: Intravenous: Omnipaque 350 Contrast volume:100 ml Oral: no COMPARISON: CT CT ABDOMEN PELVIS W from 07/20/2023 FINDINGS: CHEST: Pulmonary parenchyma: No consolidation. No dominant measurable mass. Tracheobronchial tree: No bronchiectasis. No mucous plugging.No bronchial wall thickening. Pleura: No effusion or pneumothorax. Mediastinum: No adenopathy. Small hiatal hernia. Pulmonary arteries: No visible emboli. Cardiovascular: Heart size is normal. There are mild coronary artery calcifications. No pericardial effusion. Thoracic aorta non-dilated. Bones: Mild degenerative changes. No lytic or blastic lesions. No compression fractures. No visible rib fractures. Soft tissues: Unremarkable. ABDOMEN and PELVIS: Liver: Normal density. No suspicious mass. Gallbladder and biliary tract: No evidence of stones or wall thickening. No biliary dilatation. Pancreas: Normal density, no abnormal calcifications or inflammatory process. Spleen: Normal. Kidneys: Normal size, contour and axis. No radiodense stones. No obstructive uropathy. No suspicious masses seen. Adrenal glands: No masses seen. Aorta: Abdominal portion non-dilated. Lymph nodes: Within normal limits. Soft tissues: Unremarkable. Bladder: Over distended but unremarkable. Bowel: No obstruction or bowel wall thickening. The appendix is normal. Normal quantity of stool. Peritoneal cavity: No ascites. No focal collection. No mesenteric inflammatory response. No free air. Bones: Bilateral L5 spondylolysis, unchanged from prior. Minimal spondylolisthesis. No acute fractures in the lumbar spine or pelvis. Reproductive organs: Unremarkable for age. IMPRESSION: No acute abnormality in the chest, abdomen or pelvis. RADIATION DOSE DELIVERED: Total DLP DATA REPOSITORY: All CT scans at this facility are submitted to the National Radiology Data Registry (NRDR) Dose Index Registry (DIR) with the [employer] (ACR). RADIATION OPTIMIZATION: All CT scans at this facility use at least one of these dose optimization techniques: automated exposure control; mA and/or kV adjustment per patient size (includes targeted exams where dose is matched to clinical indication); or iterative reconstruction.
[2025-08-24] MEDS: Acetaminophen 500 MG TAB 1000 MG PO (18:31)
[2025-08-24 18:35] LABS: Abs Immature Grans 0.02 10^3/uL (0.0-0.06); HCT 42.6 % (40.0-50.0); HGB 14.3 g/dL (13.5-17.5); Immature Grans % 0.2 %; MCH 30.4 pg (27.0-33.0); MCHC 33.6 % (32.0-36.0); MCV 91 fL (80-95); MPV 8.8 fL (8.0-11.0); Platelet Count 251 10^3/uL (130-400); RBC 4.70 10^6/uL (4.36-5.78); RDW 13.2 % (11.8-14.1); RDW-SD 43.7 fL; WBC 10.42 10^3/uL (4.4-10.8)
[2025-08-24] MEDS: Omnipaque 350 MG/ML 100 ML BTL IJ (18:41)
[2025-08-24] MEDS: Normal Saline - Diluent 50 ML VIAL IJ (18:41)
[2025-08-24] MEDS: Normal Saline Flush 10 ML SYR IVP (18:41)
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
[2025-08-24 18:46] LABS: INR 1.0 (0.9-1.1); Prothrombin Time 9.9 sec (9.1-11.1)
[2025-08-24 18:50] LABS: ALT 51 U/L (16-63); AST 21 U/L (15-37); Albumin 3.8 g/dL (3.4-5.0); Alkaline Phosphatase 125 U/L (46-116); Anion Gap 10.7 mmol/L (3-11); BUN 18 mg/dL (7-18); Bilirubin, Total 0.5 mg/dL (0.2-1.0); CO2 25.3 mmol/L (21.0-32.0); Calcium 8.7 mg/dL (8.5-10.1); Chloride 101 mmol/L (98-107); Estimated GFR 84.89 (mL/min/1.73m2); Glucose 101 mg/dL (74-106); Magnesium 2.4 mg/dL (1.8-2.4); Potassium 3.8 mmol/L (3.5-5.1); Sodium 137 mmol/L (136-145); Total Protein 7.8 g/dL (6.4-8.2)
[2025-08-24 19:28] VITALS: PULSE 72; RESP 18; O2SAT 95
== END 2025-08-24 19:29 | disposition home or self-care (01) ==
PROVIDERS: Emergency Provider Emergency Medicine; PCP Student in an Organized Health Care Education/Training Program
DX: S30.11XA Contusion of abdominal wall, initial encounter (principal); R73.03 Prediabetes; Z79.85 Long-term (current) use of injectable non-insulin antidiabetic drugs; W20.8XXA Other cause of strike by thrown, projected or falling object, initial encounter; Y93.89 Activity, other specified; Y92.098 Other place in other non-institutional residence as the place of occurrence of the external cause
CPT/HCPCS: 74177; 80053; 99285; 71260; 83735; 85025; 85610; J3490

== ENCOUNTER 2025-08-25 03:27 | Outpatient (CLI) | payer MEDICARE, MEDICAID, SELFPAY ==
[2025-08-25 08:20] LABS: Lithium 0.6 mmol/L (0.6-1.2)
== END 2025-08-25 03:28 | disposition home or self-care (01) ==
PROVIDERS: PCP Student in an Organized Health Care Education/Training Program; Visit Provider Psychiatry & Neurology Psychiatry
DX: Z79.899 Other long term (current) drug therapy (principal)
CPT/HCPCS: 36415; 80178

== ENCOUNTER 2025-10-25 07:07 | Outpatient (CLI) | payer MEDICARE, MEDICAID, SELFPAY ==
[2025-10-25 07:58] LABS: Hemoglobin A1C 5.8 % (<5.7)
[2025-10-25 08:23] LABS: Lithium 0.70 mmol/L (0.60-1.20)
[2025-10-25 08:24] LABS: ALT 41 U/L (10-49); AST 27 U/L (<34); Albumin 4.0 g/dL (3.2-5.0); Alkaline Phosphatase 109 U/L (46-116); Anion Gap 6.9 mmol/L (3-11); BUN 19 mg/dL (9-23); Bilirubin, Total 0.6 mg/dL (0.2-1.2); CO2 28.1 mmol/L (20.0-31.0); Calcium 8.7 mg/dL (8.3-10.6); Chloride 103 mmol/L (98-107); Glucose 109 mg/dL (74-106); Potassium 4.0 mmol/L (3.5-5.1); Sodium 138 mmol/L (136-145); Total Protein 6.7 g/dL (5.7-8.2)
[2025-10-25 08:26] LABS: TSH (W/Ref FT4) 0.88 uIU/mL (0.55-4.78)
== END 2025-10-25 07:08 | disposition home or self-care (01) ==
LOC: LBO 07:08
PROVIDERS: PCP Student in an Organized Health Care Education/Training Program; Visit Provider Psychiatry & Neurology Psychiatry
DX: Z79.899 Other long term (current) drug therapy (principal)
CPT/HCPCS: 36415; 80053; 80178; 83036; 84443